=== PATIENT | male | born 1970 | race Caucasian/White ===

== ENCOUNTER → 2022-07-06 07:36 | Outpatient (CLI) | payer BC, SELFPAY ==
[2022-07-06 07:48] LABS: Microscopic, Urine URINE MICROSCOPIC (MICROSCOPIC)
[2022-07-06 08:04] LABS: Appearance,Urine SL CLOUDY (Clear); Bilirubin,Urine Negative (Negative); Blood, Urine TRACE-I (Negative); Color,Urine YELLOW (Yellow); Glucose,Urine (UA) Negative (Negative); Ketones,Urine Negative (Negative); Leukocyte Esterase,Urine TRACE (Negative); Nitrate,Urine Negative (Negative); PH,Urine 6.5 (5.0-8.5); Protein,Urine Negative (Negative); Specific Gravity, Urine 1.015 (1.005-1.030); Urobilinogen,Urine 0.2 EU/dl (0.2)
[2022-07-06 08:09] LABS: Basophils # 0.1 K/mm3 (0-0.2); Basophils % 1.6 % (0.1-2.0); Eosinophils # 0.1 K/mm3 (0.0-0.4); Eosinophils % 1.6 % (0.1-12.0); Hemoglobin 17.9 g/dL (14.1-18.0); Lymphocytes # 1.8 K/mm3 (0.7-4.5); Lymphocytes % 22.9 % (10-50); Mean Corpuscular HGB Conc 33.1 g/dL (31.8-35.4); Mean Corpuscular Hemoglobin 30.7 pg (27.0-31.2); Mean Corpuscular Volume 92.9 fl (80-94); Mean Platelet Volume 8.8 fl (7.4-10.4); Monocytes # 0.5 K/mm3 (0.1-1.0); Monocytes % 6.3 % (1.7-9.3); Neutrophils # 5.4 K/mm3 (1.8-7.8); Neutrophils % 67.6 % (37.0-80.0); Platelet Count 287 K/mm3 (142-424); Red Blood Count 5.82 M/mm3 (4.60-6.20); Red Cell Distribution Width 13.4 % (11.5-17.5)
[2022-07-06 08:20] LABS: Squamous Epithelial Cell,Urine Occasional #/hpf (0-5); WBC,Urine Occasional #/hpf (0-3)
[2022-07-06 08:47] LABS: Alanine Aminotransferase 40 U/L (12-78); Albumin Level 4.8 g/dl (3.5-5.0); Albumin/Globulin Ratio 1.5 (1.1-1.8); Alkaline Phosphatase 95 U/L (38-126); Anion Gap 16.4 mEq/L (5-15); Aspartate Amino Transferase 31 U/L (17-59); Bilirubin,Total 0.9 mg/dl (0.2-1.3); Blood Urea Nitrogen 12 mg/dl (9-20); Calcium 10.2 mg/dl (8.4-10.2); Carbon Dioxide 30 mmol/L (22.0-30.0); Chloride 97 mmol/L (98-107); Chol/HDL Ratio 5.6 (1-3.5); Cholesterol 203 mg/dl (140-200); Estimated Glomerular Filt Rate 71 ml/min (>60); GFR (African American) 86 ML/MIN (>60); Globulin 3.1 g/dL (1.3-3.2); Glucose 87 mg/dl (74-100); HDL Cholesterol 36 mg/dl (40-60); Potassium 4.4 mmoL/L (3.5-5.1); Sodium 139 mmol/L (136-145); Total Protein,Serum 7.9 g/dl (6.3-8.2); Triglycerides 189 mg/dl (30-150); VLDL Cholesterol 38 mg/dL (0-40)
[2022-07-06 08:58] LABS: Direct LDL Cholesterol 119.35 mg/dL (100-129)
[2022-07-12 04:35] LABS: Testosterone, Total, LC/MS 990 ng/dL (.)
== END ==
PROVIDERS: PCP Internal Medicine; Visit Provider Nurse Practitioner Family
DX: I10 Essential (primary) hypertension (principal); R53.83 Other fatigue; E29.1 Testicular hypofunction; Z13.220 Encounter for screening for lipoid disorders; Z12.5 Encounter for screening for malignant neoplasm of prostate
CPT/HCPCS: 36415; 80053; 80061; 81001; 84403; 85025; G0103

== ENCOUNTER → 2022-12-28 07:35 | Outpatient (CLI) | payer BC, SELFPAY ==
[2022-12-28 07:43] LABS: Microscopic, Urine URINE MICROSCOPIC (MICROSCOPIC)
[2022-12-28 08:16] LABS: Basophils # 0.1 K/mm3 (0-0.2); Basophils % 0.9 % (0.1-2.0); Eosinophils # 0.2 K/mm3 (0.0-0.4); Eosinophils % 2.1 % (0.1-12.0); Hematocrit 51.3 % (42.0-52.0); Hemoglobin 17.5 g/dL (14.1-18.0); Lymphocytes # 2.3 K/mm3 (0.7-4.5); Lymphocytes % 32.2 % (10-50); Mean Corpuscular HGB Conc 34.2 g/dL (31.8-35.4); Mean Corpuscular Hemoglobin 30.7 pg (27.0-31.2); Mean Platelet Volume 8.9 fl (7.4-10.4); Monocytes # 0.4 K/mm3 (0.1-1.0); Monocytes % 6.2 % (1.7-9.3); Neutrophils # 4.2 K/mm3 (1.8-7.8); Neutrophils % 58.6 % (37.0-80.0); Platelet Count 295 K/mm3 (142-424); Red Cell Distribution Width 13.1 % (11.5-17.5); White Blood Count 7.1 K/mm3 (4.8-10.8)
[2022-12-28 08:25] LABS: Appearance,Urine CLEAR (Clear); Bilirubin,Urine Negative (Negative); Blood, Urine Negative (Negative); Color,Urine YELLOW (Yellow); Glucose,Urine (UA) Negative (Negative); Ketones,Urine Negative (Negative); Leukocyte Esterase,Urine Negative (Negative); Nitrate,Urine Negative (Negative); Protein,Urine Negative (Negative); Urobilinogen,Urine 0.2 EU/dl (0.2)
[2022-12-28 08:36] LABS: Chloride 95 mmol/L (98-107)
[2022-12-28 08:37] LABS: Potassium 4.4 mmoL/L (3.5-5.1); Sodium 137 mmol/L (136-145)
[2022-12-28 08:39] LABS: Blood Urea Nitrogen 14 mg/dl (9-20); Estimated Glomerular Filt Rate 64 ml/min (>60); GFR (African American) 77 ML/MIN (>60)
[2022-12-28 08:40] LABS: Anion Gap 19.4 mEq/L (5-15); Calcium 9.7 mg/dl (8.4-10.2); Carbon Dioxide 27 mmol/L (22.0-30.0); Glucose 89 mg/dl (74-100)
[2022-12-28 08:47] LABS: WBC,Urine Occasional #/hpf (0-3)
[2022-12-28 08:48] LABS: Bacteria,Urine Trace /lpf; RBC,Urine Occasional #/hpf (0-3); Squamous Epithelial Cell,Urine Occasional #/hpf (0-5)
[2023-01-06 22:24] LABS: Testosterone, Total, LC/MS 323 ng/dL (.)
== END ==
PROVIDERS: PCP Internal Medicine; Visit Provider Nurse Practitioner Family
DX: R79.89 Other specified abnormal findings of blood chemistry (principal); E29.1 Testicular hypofunction
CPT/HCPCS: 36415; 80048; 81001; 84403; 85025

== ENCOUNTER → 2023-06-28 07:38 | Outpatient (CLI) | payer BC, SELFPAY ==
[2023-06-28 08:00] LABS: Basophils # 0.1 K/mm3 (0-0.2); Basophils % 1.1 % (0.1-2.0); Eosinophils # 0.1 K/mm3 (0.0-0.4); Eosinophils % 2.1 % (0.1-12.0); Hemoglobin 17.7 g/dL (14.1-18.0); Lymphocytes # 1.9 K/mm3 (0.7-4.5); Lymphocytes % 30.7 % (10-50); Mean Corpuscular HGB Conc 34.8 g/dL (31.8-35.4); Mean Corpuscular Hemoglobin 32.1 pg (27.0-31.2); Mean Corpuscular Volume 92.4 fl (80-94); Mean Platelet Volume 8.7 fl (7.4-10.4); Monocytes # 0.4 K/mm3 (0.1-1.0); Monocytes % 6.7 % (1.7-9.3); Neutrophils # 3.7 K/mm3 (1.8-7.8); Neutrophils % 59.4 % (37.0-80.0); Platelet Count 244 K/mm3 (142-424); Red Blood Count 5.52 M/mm3 (4.60-6.20); Red Cell Distribution Width 13.1 % (11.5-17.5); White Blood Count 6.2 K/mm3 (4.8-10.8)
[2023-06-28 08:52] LABS: Alanine Aminotransferase 77 U/L (12-78); Aspartate Amino Transferase 48 U/L (17-59); Chol/HDL Ratio 5.8 (1-3.5); Cholesterol 219 mg/dl (140-200); HDL Cholesterol 38 mg/dl (40-60); Triglycerides 219 mg/dl (30-150); VLDL Cholesterol 44 mg/dL (0-40)
[2023-06-28 09:03] LABS: Direct LDL Cholesterol 127.15 mg/dL (100-129)
[2023-07-01 08:30] LABS: Anion Gap 15.7 mEq/L (5-15); Blood Urea Nitrogen 17 mg/dl (9-20); Calcium 9.9 mg/dl (8.4-10.2); Carbon Dioxide 27 mmol/L (22.0-30.0); Chloride 102 mmol/L (98-107); Estimated Glomerular Filt Rate 64 ml/min (>60); GFR (African American) 77 ML/MIN (>60); Glucose 100 mg/dl (74-100); Potassium 4.7 mmoL/L (3.5-5.1); Sodium 140 mmol/L (136-145)
[2023-07-08 22:28] LABS: Testosterone, Total, LC/MS 459 ng/dL (.)
== END ==
PROVIDERS: Urology; PCP Internal Medicine; Visit Provider Internal Medicine
DX: R79.89 Other specified abnormal findings of blood chemistry (principal); R53.83 Other fatigue; Z13.220 Encounter for screening for lipoid disorders; Z12.5 Encounter for screening for malignant neoplasm of prostate
CPT/HCPCS: 36415; 80048; 80061; 84403; 84450; 84460; 85025; G0103

== ENCOUNTER 2025-02-12 07:05 | Outpatient (CLI) | payer BC, SELFPAY ==
--- OUTSIDE RECORDS SUMMARY | 2025-02-12 07:09 | XMS_ITS | Encounter Summary ---
Author Organization [employer] [facility] Address [address] [place] [id number] Care Team Providers Care Manager Travel Name Role Phone River Fajardo DO Primary Care Provider [phone] Leigh Rosenthal MD Primary Care Provider [phone] Encounter Details Date Type Department Care Team (Late st Contact Info) Description 06/30/2022 Outside Orders [facility] Admitting [address] [place] [id number] River Fajardo, DO [address] [place] [address] Social History Tobacco Use Types Packs/Day Years Used Date Smoking Tobacco: Never Assessed Sex and Gender Information Value Date Recorded Sex Assigned at Not on file Legal Sex Male 5:43 PM CDT Gender Identity Not on file Sexual Orientation Not on file documented as of this encounter Plan of Treatment Not on file documented as of this encounter Visit Diagnoses Not on filedocumented in this encounter Care Teams Manager Travel Relationship Specialty Start Date End Date River Fajardo DO [address] [address] [address] [place] [address] PCP - General Family Medicine 06/30/22 07/02/24 Leihg Rosenthal MD [address] [facility] [address] [place] [address] PCP - General Pediatrics 07/03/24 documented as of this encounter
--- OUTSIDE RECORDS SUMMARY | 2025-02-12 07:09 | XMS_ITS | Encounter Summary ---
Author Organization [employer] [facility] [employer] Address [address] [place] [address] Care Team Providers Care Model Set Artist Name Role Phone River Fajardo DO Primary Care Provider [phone] Leigh Rosenthal MD Primary Care Provider [phone] Encounter Details Date Type Department Care Team (Late st Contact Info) Description 06/30/2022 Outside Orders [facility] Admitting [address] [place] [address] River Fajardo DO [address] [place] [address] Low testosterone (Primary Dx) Social History Tobacco Use Types Packs/Day Years Used Date Smoking Tobacco: Never Assessed Sex and Gender Information Value Date Recorded Sex Assigned at Not on file Legal Sex Male 5:43 PM CDT Gender Identity Not on file Sexual Orientation Not on file documented as of this encounter Plan of Treatment Scheduled Orders Name Type Priority Associated Diagnoses Orde r Schedule Basic Metabolic Panel Lab Routine Low testosterone Ordered: 06/30/2022 Lipid panel Lab Routine Low testosterone Ordered: 06/30/2022 ALT+AST Lab Routine Low testosterone Ordered: 06/30/2022 Testosterone, free + total Lab Routine Low testosterone Ordered: 06/30/2022 Comprehensive metabolic panel Lab Routine Low testosterone Ordered: 06/30/2022 PSA Total (Reflex To Free) Pathology and Cytology AP Routine Low testosterone Ordered: 06/30/2022 Urinalysis, Complete Lab Routine Low testosterone Ordered: 06/30/2022 documented as of this encounter Visit Diagnoses Diagnosis Low testosterone- Primary documented in this encounter Care Teams Model Set Artist Relationship Specialty Start Date End Date River Fajardo DO [address] [place] [address] PCP - General Family Medicine 06/30/22 07/02/24 Leigh Rosenthal MD [address] [place], [place] [id number] PCP - General Pediatrics 07/03/24 documented as of this encounter
--- OUTSIDE RECORDS SUMMARY | 2025-02-12 07:09 | XMS_ITS | Clinical Summary ---
Author Organization [employer] [facility] [employer] Address [address] [place] [address] Care Team Providers Care Database Consultant Name Role Phone Leigh Rosenthal MD Primary Care Provider Social History Tobacco Use Types Packs/Day Years Used Date Smoking Tobacco: Never Assessed Interpersonal Safety Answer Date Record ed Family or friends hurt you Not on file 09/15 Family or friends insult you Not on file Family or friends threaten you Not on file 0 09/15/2023 Family or friends scream or curse at you Not on file 09/15/2023 Housing Stability Answer Date Recorded Living situation today Not on file Living situation problems Not on file 2023 Food Insecurity Answer Date Recorded Food run out past 12 months Not on file 08/29 Food did not last past 12 months Not on file 09/15/2023 Employment Answer Date Recorded Help finding and keeping a job Not on file 0 09/15/2023 Family and Community Support Answer Darrell e Recorded Help with Day to Day Activities Not on file 09/15/2023 Feeling Lonely or Isolated Not on file 09/15 Educational Attainment Answer Date Ismael rded Speak language other than Polish at home Not on file 09/15/2023 Want help with school or training Not on file 09/15/2023 Depression Answer Date Recorded PHQ-2 Risk Not on file 09/15/2023 Disabilities Answer Date Recorded Difficulty concentrating Not on file 024 Difficulty doing errands alone Not on file 0 09/15/2023 Substance Use Answer Date Recorded Used prescription meds for non-medical reasons N ot on file 09/15/2023 Used illegal drugs past 12 months Not on file 09/15/2023 Sex and Gender Information Value Date Recorded Sex Assigned at Not on file Legal Sex Male 5:43 PM CDT Gender Identity Not on file Sexual Orientation Not on file Plan of Treatment Health Maintenance Due Date Last Done Comments CT Colonography 1971 Colonoscopy 1971 Colorectal Cancer Screening 1971 FOBT/FIT 1971 Fit-DNA (Cologuard) 1971 Sigmoidoscopy 1971 Depression Screening (12+) 1983 Tobacco Cessation Counseling and Screening (12+) 1983 HIV Screening 10/29/1986 Hepatitis C Screening 10/29/1989 Lipid Panel 10/29/2006 Pneumococcal 50+ years (1 of 1 - PCV) 10/29/2021 Shingles Vaccine (Zoster) (1 of 2) 10/29/2021 COVID-19 VACCINE (1 - season) 04/29/202408/2020, 10/27/2020 Influenza Vaccine (Season Ended) 2025 DTAP/TDAP/TD VACCINES (2 - Td or Tdap) 09/11/2025 Insurance BLUE CROSS/BLUE SHIELD Care Teams Database Consultant Relationship Specialty Start Date End Date Leigh Rosenthal MD [address] [facility] [address] [place] [id number] PCP - General Pediatrics 07/03/24
--- OUTSIDE RECORDS SUMMARY | 2025-02-12 07:09 | XMS_ITS | Data Portability ---
Author Organization [facility] Address [address] [place] [address] Assessment No assessment recorded. Plan of Treatment Reminders Order Date Submit Date Provider Last Modified By Organization Details Last Modified Time Details Appointments FOLLOW UP 30 2024 04:30P Joyce curry MD Not available Not available Not available Lab lipid panel, serum or plasma 2024 025 [facility]), [address] [place], [address], 02/05/2025 15:08:27 CBC w/ auto diff 2024 025 [facility]), [address] [place] [address], [address], 02/05/2025 15:08:26 testost erone, free + total, serum 2024 025 [facility]), [address] [place] [address], [address], 02/05/2025 15:08:28 HbA1c (hemogl obin A1c), blood 2024 025 [facility], [address] [place] [address], [address], 02/05/2025 15:08:29 PSA, serum or plasma 2024 025 [facility], [address] [place] [address], [address], 02/05/2025 15:08:28 CMP, serum or plasma 2024 025 [facility]), [address] [place], [address], 02/05/2025 15:08:27 CMP, serum or plasma 2023 024 [facility]), [address] [place], [address], 06/27/2024 05:07:39 CBC w/ auto diff 2023 024 [facility]), [address] [place] [address], [address], 06/27/2024 05:07:38 BMP, serum or plasma 2023 024 [employer] [facility], [address], [place], [address], 12/13/2023 13:43:31 lipid panel, serum 2023 024 [facility], [address], [place], [address], 12/13/2023 13:43:31 urinaly sis, complet e 2023 024 [facility], [address], [place], [address], 12/13/2023 13:43:31 BMP, serum or plasma 2022 023 [employer], [address], [place], [address], 07/01/2023 09:24:18 lipid panel, serum 2022 023 [facility], [address], [place], [address], 07/01/2023 16:43:24 urinaly sis, complet e 2022 023 [email or web address], [address], [place], [address], 07/01/2023 16:43:24 BMP, serum or plasma [address] [facility], [address], [place], [address], 12/28/2022 10:42:16 urinaly sis, complet e 2022 023 [employer] [facility], [address], [place], [address], 12/28/2022 10:42:16 Referral gastroe nterolo gist referra l 2024 025 adilene Andrew MD, [address] [place] [address], [facility], [place], [address], 02/11/2025 14:59:40 Procedures None recorde d. Surgeries None recorde d. Imaging None recorde d. Medication Orders amlodip ine 10 mg tablet 2024 025 [facility], [address], [place], [address], 01/28/2025 16:12:11 valsart an 320 mg tablet 2024 025 [facility], [address], [place], [address], 01/28/2025 16:12:16 spirono lactone 25 mg tablet 2024 025 [facility], [address], [place], [address], 01/28/2025 16:12:12 venlafa xine ER 75 mg capsule ,extend ed release 24 hr 2024 025 [facility], [address], [place], [address], 01/28/2025 16:12:12 amlodip ine 10 mg tablet 2023 024 [facility] [id number], [address], [place], [address], 12/06/2023 15:33:05 spirono lactone 25 mg tablet 2023 024 [facility] [id number], [address], [place], [address], 12/06/2023 15:32:52 valsart an 320 mg tablet 2023 024 [facility] [id number], [address], [place], [address], 12/06/2023 15:32:55 venlafa xine ER 75 mg capsule ,extend ed release 24 hr 2023 024 [facility] [id number], [address], [place], [address], 12/06/2023 15:33:03 amlodip ine 10 mg tablet 2022 023 [facility] [id number], [address], [place], [address], 06/21/2023 18:01:23 spirono lactone 25 mg tablet 2022 023 [facility] [id number], [address], [place], [address], 06/21/2023 18:01:23 valsart an 320 mg tablet 2022 023 [facility] [id number], [address], [place], [address], 06/21/2023 18:01:28 venlafa xine ER 75 mg capsule ,extend ed release 24 hr 2022 023 [facility] [id number], [address], [place], [address], 06/21/2023 18:01:13 amlodip ine 10 mg tablet 2022 023 [facility] [id number], [address], [place], [address], 12/22/2022 16:18:37 spirono lactone 25 mg tablet 2022 023 [facility] [id number], [address], [place], [address], 12/22/2022 16:18:35 valsart an 320 mg tablet 2022 023 [facility] [id number], [address], [place], [address], 12/22/2022 16:18:26 venlafa xine ER 75 mg capsule ,extend ed release 24 hr 2022 023 [facility] [id number], [address], [place], [address], 12/22/2022 16:18:31 Patient TargetsNo targets recorded. Patient Instructions Encounter Date Encounter Id Patient Instructions Last Modified By Organization Details Last Modified Time 12/22/2022 [id number] Needs colonoscopy in 2023. [email or web address] Not available 12/22/2022 16:18:29 06/21/2023 [id number] weight management education Not available 06/21/2023 17:59:59 Needs colonoscopy in 2025. Plans to get labs done with urology orders. Already had flu vaccine this year. [email or web address] Not available 06/21/2023 18:01:30 12/06/2023 [id number] weight management education [email or web address] Not available 12/06/2023 15:32:41 Needs colonoscopy in 2025. Already had flu vaccine this year. 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 Referral for Screening for malignant neoplasm of colon Referring Physician: Leigh Rosenthal, Pediatric Internal Medicine, [phone] Encounter Date: 01/28/2025 Results Created Date Observation Date Name Description Value Unit Range Abnormal Flag Note LastModifiedBy Organization Detail LastModifiedTime 01/13/20 24 01/14/2024 LIPID PANEL WITH REFLE X TO DIREC T LDL cholesterol, total 196 mg/dL <200 normal Not Available [facility] [address] [place], [address], 01/14/2024 07:03:26 01/13/20 24 01/14/2024 LIPID PANEL WITH REFLE X TO DIREC T LDL HDL cholesterol 44 mg/dL > or = 40 normal Not Available [facility] [address] [place], [address], 01/14/2024 07:03:26 01/13/20 24 01/14/2024 LIPID PANEL WITH REFLE X TO DIREC T LDL triglyceride s 211 mg/dL <150 high If a non-f astin g speci men was colle cted, consi abbie repea t trigl yceri de testi ng on a fasti ng speci men if clini claudia indic ated. [place] aleman et al. J. of Clin. Lipid ol. 2015; 9:129 -169. Not Available [facility] [address], [place], [address], 01/14/2024 07:03:26 01/13/20 24 01/14/2024 LIPID PANEL WITH REFLE X TO DIREC T LDL LDL-choleste rol 119 mg/dL _(milena c) high Refer ence range : <100 Jorgito able range <100 mg/dL for prima ry preve ntion ; <70 mg/dL for patie nts with CHD or diabe tic patie nts with > or = 2 CHD risk facto rs. LDL-C is now calcu lated using the Marianne n-Hop kins calcu latio n, which is a valid ated novel miguelo d provi tk skinny r accur acy than the Fried brooke equat ion in the estim ation of LDL-C . Marianne prasad SS et al. DAI. 2013; 310(1 9): 2061- 2068 (http ://ed ucati on.Qu Felix NetEffect. com/f aq/FA Q164) Not Available [facility] [address], [place], [address], 01/14/2024 07:03:26 01/13/20 24 01/14/2024 LIPID PANEL WITH REFLE X TO DIREC T LDL chol/HDLC ratio 4.5 (calc ) <5.0 normal Not Available [facility] [address], [place], [address], 01/14/2024 07:03:26 01/13/20 24 01/14/2024 LIPID PANEL WITH REFLE X TO DIREC T LDL non HDL cholesterol 152 mg/dL _(milena c) <130 high For patie nts with diabe barrington plus 1 major ASCVD risk facto r, treat ing to a non-H DL-C goal of <100 mg/dL (LDL- C of <70 mg/dL ) is consi dered a thera peuti c optio n. Not Available [facility] [address], [place], [address], 01/14/2024 07:03:26 01/13/20 24 01/14/2024 BASIC METAB OLIC PANEL glucose 85 mg/dL 65-99 normal Fasti ng refer ence inter kaylan Not Available [facility] [address] [place], [address], 01/14/2024 07:03:27 01/13/20 24 01/14/2024 BASIC METAB OLIC PANEL urea nitrogen (BUN) 21 mg/dL 7-25 normal Not Available [facility] [address] [place], [address], 01/14/2024 07:03:27 01/13/20 24 01/14/2024 BASIC METAB OLIC PANEL creatinine 1.43 mg/dL 0.70-1 .30 high Not Available [facility] [address] [place], [address], 01/14/2024 07:03:27 01/13/20 24 01/14/2024 BASIC METAB OLIC PANEL eGFR 59 mL/mi n/1.7 3m2 > or = 60 low Not Available [facility] [address] [place], [address], 01/14/2024 07:03:27 01/13/20 24 01/14/2024 BASIC METAB OLIC PANEL BUN/creatini ne ratio 15 (calc ) 6-22 normal Not Available [facility] [address] [place], [address], 01/14/2024 07:03:27 01/13/20 24 01/14/2024 BASIC METAB OLIC PANEL sodium 137 mmol/ L 135-14 6 normal Not Available [facility] [address] [place], [address], 01/14/2024 07:03:27 01/13/20 24 01/14/2024 BASIC METAB OLIC PANEL potassium 4.5 mmol/ L 3.5-5. 3 normal Not Available [facility] [address] [place], [address], 01/14/2024 07:03:27 01/13/20 24 01/14/2024 BASIC METAB OLIC PANEL chloride 102 mmol/ L 98-110 normal Not Available [facility] [address] [place], [address], 01/14/2024 07:03:27 01/13/20 24 01/14/2024 BASIC METAB OLIC PANEL carbon dioxide 25 mmol/ L 20-32 normal Not Available [facility] [address] [place], [address], 01/14/2024 07:03:27 01/13/20 24 01/14/2024 BASIC METAB OLIC PANEL calcium 10.1 mg/dL 8.6-10 .3 normal Not Available [facility] [address] [place], [address], 01/14/2024 07:03:27 06/26/20 24 06/27/2024 CBC WITH DIFFE RENTI AL/PL ATELE T WBC 6.8 x10e3 /uL 3.4-10 .8 normal Not Available [facility]) [address] [place], [address], 06/27/2024 05:07:38 06/26/20 24 06/27/2024 CBC WITH DIFFE RENTI AL/PL ATELE T RBC 5.59 x10e6 /uL 4.14-5 .80 normal Not Available [facility] ([facility]) [address] [place], [address], 06/27/2024 05:07:38 06/26/20 24 06/27/2024 CBC WITH DIFFE RENTI AL/PL ATELE T hemoglobin 16.8 g/dL 13.0-1 7.7 normal Not Available [facility] ([facility]) [address] [facility], [place], [address], 06/27/2024 05:07:38 06/26/2006/27/2024 CBC WITH DIFFE RENTI AL/PL ATELE T hematocrit 51.5 % 37.5-5 1.0 above high normal Not Available [facility] ([facility]) [address] [facility], [place], [address], 06/27/2024 05:07:38 06/26/2006/27/2024 CBC WITH DIFFE RENTI AL/PL ATELE T MCV 92 fL 79-97 normal Not Available [facility] ([facility]) [address] [facility], [place], [address], 06/27/2024 05:07:38 06/26/20 24 06/27/2024 CBC WITH DIFFE RENTI AL/PL ATELE T MCH 30.1 pg 26.6-3 3.0 normal Not Available [facility] ([facility]) [address] [facility], [place], [address], 06/27/2024 05:07:38 06/26/2006/27/2024 CBC WITH DIFFE RENTI AL/PL ATELE T MCHC 32.6 g/dL 31.5-3 5.7 normal Not Available [facility] ([facility]) [address] [facility], [place], [address], 06/27/2024 05:07:38 06/26/20 24 06/27/2024 CBC WITH DIFFE RENTI AL/PL ATELE T RDW 12.2 % 11.6-1 5.4 Not Available [facility] ([facility]) [address] [facility], [place], [address], 06/27/2024 05:07:38 06/26/20 24 06/27/2024 CBC WITH DIFFE RENTI AL/PL ATELE T platelets 282 x10e3 /uL 150-45 0 normal Not Available [facility]) [address] [facility], [place], [address], 06/27/2024 05:07:38 06/26/20 24 06/27/2024 CBC WITH DIFFE RENTI AL/PL ATELE T neutrophils 51 % not estab. normal Not Available [facility] ([facility]) [address] [facility], [place], [address], 06/27/2024 05:07:38 06/26/20 24 06/27/2024 CBC WITH DIFFE RENTI AL/PL ATELE T lymphs 35 % not estab. normal Not Available [facility] ([facility]) [address] [facility], [place], [address], 06/27/2024 05:07:38 06/26/20 24 06/27/2024 CBC WITH DIFFE RENTI AL/PL ATELE T monocytes 11 % not estab. normal Not Available [facility] ([facility]) [address] [facility], [place], [address], 06/27/2024 05:07:38 06/26/2006/27/2024 CBC WITH DIFFE RENTI AL/PL ATELE T eos 2 % not estab. normal Not Available [facility]) [address] [facility], [place], [address], 06/27/2024 05:07:38 06/26/20 24 06/27/2024 CBC WITH DIFFE RENTI AL/PL ATELE T basos 1 % not estab. normal Not Available [facility]) [address] [facility], [place], [address], 06/27/2024 05:07:38 06/26/2006/27/2024 CBC WITH DIFFE RENTI AL/PL ATELE T immature cells [employer] Not Available [facility] ([facility]) [address] [facility], [place], [address], 06/27/2024 05:07:38 06/26/20 24 06/27/2024 CBC WITH DIFFE RENTI AL/PL ATELE T neutrophils (absolute) 3.5 x10e3 /uL 1.4-7. 0 normal Not Available [facility]) [address] [place], [address], 06/27/2024 05:07:38 06/26/20 24 06/27/2024 CBC WITH DIFFE RENTI AL/PL ATELE T lymphs (absolute) 2.4 x10e3 /uL 0.7-3. 1 normal Not Available [facility] ([facility]) [address] [place], [address], 06/27/2024 05:07:38 06/26/20 24 06/27/2024 CBC WITH DIFFE RENTI AL/PL ATELE T monocytes(ab solute) 0.7 x10e3 /uL 0.1-0. 9 normal Not Available [facility] ([facility]) [address] [place], [address], 06/27/2024 05:07:38 06/26/20 24 06/27/2024 CBC WITH DIFFE RENTI AL/PL ATELE T eos (absolute) 0.1 x10e3 /uL 0.0-0. 4 normal Not Available [facility] ([facility]) [address] [place], [address], 06/27/2024 05:07:38 06/26/20 24 06/27/2024 CBC WITH DIFFE RENTI AL/PL ATELE T baso (absolute) 0.1 x10e3 /uL 0.0-0. 2 normal Not Available [facility] ([facility]) [address] [place], [address], 06/27/2024 05:07:38 06/26/20 24 06/27/2024 CBC WITH DIFFE RENTI AL/PL ATELE T immature granulocytes 0 % not estab. Not Available [facility] ([facility]) [address] [place], [address], 06/27/2024 05:07:38 06/26/20 24 06/27/2024 CBC WITH DIFFE RENTI AL/PL ATELE T immature grans (abs) 0.0 x10e3 /uL 0.0-0. 1 Not Available [facility] ([facility]) [address] [facility], [place], [address], 06/27/2024 05:07:38 06/26/20 24 06/27/2024 CBC WITH DIFFE RENTI AL/PL ATELE T NRBC [employer] Not Available [facility] ([facility]) [address] [facility], [place], [address], 06/27/2024 05:07:38 06/26/2006/27/2024 CBC WITH DIFFE RENTI AL/PL ATELE T hematology comments: [employer] Not Available [facility] ([facility]) [address] [facility], [place], [address], 06/27/2024 05:07:38 06/26/2006/27/2024 COMP. METAB OLIC PANEL (14) glucose 89 mg/dL 70-99 normal Not Available [facility] ([facility]) [address] [facility], [place], [address], 06/27/2024 05:07:39 06/26/20 24 06/27/2024 COMP. METAB OLIC PANEL (14) BUN 14 mg/dL 6-24 normal Not Available [facility] ([facility]) [address] [facility], [place], [address], 06/27/2024 05:07:39 06/26/20 24 06/27/2024 COMP. METAB OLIC PANEL (14) creatinine 1.33 mg/dL 0.76-1 .27 above high normal Not Available [facility] ([facility]) [address] [facility], [place], [address], 06/27/2024 05:07:39 06/26/20 24 06/27/2024 COMP. METAB OLIC PANEL (14) eGFR 64 mL/mi n/1.7 3 >59 normal Not Available [facility] ([facility]) [address] [facility], [place], [address], 06/27/2024 05:07:39 06/26/20 24 06/27/2024 COMP. METAB OLIC PANEL (14) BUN/creatini ne ratio 11 9-20 normal Not Available [facility] ([facility]) [address] [facility], [place], [address], 06/27/2024 05:07:39 06/26/20 24 06/27/2024 COMP. METAB OLIC PANEL (14) sodium 139 mmol/ L 134-14 4 normal Not Available [facility] ([facility]) [address] [facility], [place], [address], 06/27/2024 05:07:39 06/26/20 24 06/27/2024 COMP. METAB OLIC PANEL (14) potassium 4.1 mmol/ L 3.5-5. 2 normal Not Available [facility] ([facility]) [address] [place], [address], 06/27/2024 05:07:39 06/26/20 24 06/27/2024 COMP. METAB OLIC PANEL (14) chloride 101 mmol/ L 96-106 normal Not Available [facility] ([facility]) [address] [place], [address], 06/27/2024 05:07:39 06/26/20 24 06/27/2024 COMP. METAB OLIC PANEL (14) carbon dioxide, total 24 mmol/ L 20-29 normal Not Available [facility] ([facility]) [address] [place], [address], 06/27/2024 05:07:39 06/26/20 24 06/27/2024 COMP. METAB OLIC PANEL (14) calcium 9.7 mg/dL 8.7-10 .2 normal Not Available [facility] ([facility]) [address] [place], [address], 06/27/2024 05:07:39 06/26/20 24 06/27/2024 COMP. METAB OLIC PANEL (14) protein, total 7.7 g/dL 6.0-8. 5 normal Not Available [facility] ([facility]) [address] [place], [address], 06/27/2024 05:07:39 06/26/20 24 06/27/2024 COMP. METAB OLIC PANEL (14) albumin 4.6 g/dL 3.8-4. 9 normal Not Available [facility] ([facility]) [address], [place], [address], 06/27/2024 05:07:39 06/26/20 24 06/27/2024 COMP. METAB OLIC PANEL (14) globulin, total 3.1 g/dL 1.5-4. 5 Not Available [facility]) [address] [place], [address], 06/27/2024 05:07:39 06/26/20 24 06/27/2024 COMP. METAB OLIC PANEL (14) bilirubin, total 0.5 mg/dL 0.0-1. 2 normal Not Available [facility] ([facility]) [address] [facility] [place], [address], 06/27/2024 05:07:39 06/26/20 24 06/27/2024 COMP. METAB OLIC PANEL (14) alkaline phosphatase 92 IU/L 44-121 normal Not Available [facility] [address] [facility] [place], [address], 06/27/2024 05:07:39 06/26/20 24 06/27/2024 COMP. METAB OLIC PANEL (14) AST (SGOT) 21 IU/L 0-40 normal Not Available [facility] ([facility]) [address] [place], [address], 06/27/2024 05:07:39 06/26/20 24 06/27/2024 COMP. METAB OLIC PANEL (14) ALT (SGPT) 41 IU/L 0-44 normal Not Available [facility] ([facility]) [address] [place], [address], 06/27/2024 05:07:39 02/03/20 25 02/03/2025 CBC WITH DIFFE RENTI AL/PL ATELE T WBC 7.5 x10e3 /uL 3.4-10 .8 normal Not Available [facility]) [address] [facility], [place], [address], 02/05/2025 15:08:26 02/03/20 25 02/03/2025 CBC WITH DIFFE RENTI AL/PL ATELE T RBC 6.14 x10e6 /uL 4.14-5 .80 above high normal Not Available [facility] ([facility]) [address] [place], [address], 02/05/2025 15:08:26 02/03/20 25 02/03/2025 CBC WITH DIFFE RENTI AL/PL ATELE T hemoglobin 17.6 g/dL 13.0-1 7.7 normal Not Available [facility] ([facility]) [address] [place], [address], 02/05/2025 15:08:26 02/03/20 25 02/03/2025 CBC WITH DIFFE RENTI AL/PL ATELE T hematocrit 55.8 % 37.5-5 1.0 above high normal Not Available [facility] ([facility]) [address] [place], [address], 02/05/2025 15:08:26 02/03/20 25 02/03/2025 CBC WITH DIFFE RENTI AL/PL ATELE T MCV 91 fL 79-97 normal Not Available [facility] ([facility]) [address] [place], [address], 02/05/2025 15:08:26 02/03/20 25 02/03/2025 CBC WITH DIFFE RENTI AL/PL ATELE T MCH 28.7 pg 26.6-3 3.0 normal Not Available [facility] ([facility]) [address] [place], [address], 02/05/2025 15:08:26 02/03/20 25 02/03/2025 CBC WITH DIFFE RENTI AL/PL ATELE T MCHC 31.5 g/dL 31.5-3 5.7 normal Not Available [facility] ([facility]) [address] [place], [address], 02/05/2025 15:08:26 02/03/20 25 02/03/2025 CBC WITH DIFFE RENTI AL/PL ATELE T RDW 12.2 % 11.6-1 5.4 Not Available [facility] ([facility]) [address] [place], [address], 02/05/2025 15:08:26 02/03/20 25 02/03/2025 CBC WITH DIFFE RENTI AL/PL ATELE T platelets 276 x10e3 /uL 150-45 0 normal Not Available [facility] ([facility]) [address] [place], [address], 02/05/2025 15:08:26 02/03/20 25 02/03/2025 CBC WITH DIFFE RENTI AL/PL ATELE T neutrophils 60 % not estab. normal Not Available [facility] ([facility]) [address] [place], [address], 02/05/2025 15:08:26 02/03/20 25 02/03/2025 CBC WITH DIFFE RENTI AL/PL ATELE T lymphs 29 % not estab. normal Not Available [facility] ([facility]) [address] [facility], [place], [address], 02/05/2025 15:08:26 02/03/20 25 02/03/2025 CBC WITH DIFFE RENTI AL/PL ATELE T monocytes 8 % not estab. normal Not Available [facility] ([facility]) [address] [facility], [place], [address], 02/05/2025 15:08:26 02/03/20 25 02/03/2025 CBC WITH DIFFE RENTI AL/PL ATELE T eos 2 % not estab. normal Not Available [facility] ([facility]) [address] [facility], [place], [address], 02/05/2025 15:08:26 02/03/20 25 02/03/2025 CBC WITH DIFFE RENTI AL/PL ATELE T basos 1 % not estab. normal Not Available [facility] ([facility]) [address] [facility], [place], [address], 02/05/2025 15:08:26 02/03/20 25 02/03/2025 CBC WITH DIFFE RENTI AL/PL ATELE T immature cells [employer]GER [employer] Not Available [facility] ([facility]) [address] [place], [address], 02/05/2025 15:08:26 02/03/20 25 02/03/2025 CBC WITH DIFFE RENTI AL/PL ATELE T neutrophils (absolute) 4.4 x10e3 /uL 1.4-7. 0 normal Not Available [facility] ([facility]) [address] [place], [address], 02/05/2025 15:08:26 02/03/20 25 02/03/2025 CBC WITH DIFFE RENTI AL/PL ATELE T lymphs (absolute) 2.2 x10e3 /uL 0.7-3. 1 normal Not Available [facility] ([facility]) [address] [facility], [place], [address], 02/05/2025 15:08:26 02/03/20 25 02/03/2025 CBC WITH DIFFE RENTI AL/PL ATELE T monocytes(ab solute) 0.6 x10e3 /uL 0.1-0. 9 normal Not Available [facility] ([facility]) [address] [facility], [place], [address], 02/05/2025 15:08:26 02/03/20 25 02/03/2025 CBC WITH DIFFE RENTI AL/PL ATELE T eos (absolute) 0.2 x10e3 /uL 0.0-0. 4 normal Not Available [facility] ([facility]) [address] [facility], [place], [address], 02/05/2025 15:08:26 02/03/20 25 02/03/2025 CBC WITH DIFFE RENTI AL/PL ATELE T baso (absolute) 0.1 x10e3 /uL 0.0-0. 2 normal Not Available [facility] ([facility]) [address] [place], [address], 02/05/2025 15:08:26 02/03/20 25 02/03/2025 CBC WITH DIFFE RENTI AL/PL ATELE T immature granulocytes 0 % not estab. Not Available [facility] ([facility]) [address] [facility], [place], [address], 02/05/2025 15:08:26 02/03/20 25 02/03/2025 CBC WITH DIFFE RENTI AL/PL ATELE T immature grans (abs) 0.0 x10e3 /uL 0.0-0. 1 Not Available [facility] ([facility]) [address] [place], [address], 02/05/2025 15:08:26 02/03/20 25 02/03/2025 CBC WITH DIFFE RENTI AL/PL ATELE T NRBC MANAGER HOUSE Not Available [facility] ([facility]) [address] [facility], [place], [address], 02/05/2025 15:08:26 02/03/20 25 02/03/2025 CBC WITH DIFFE RENTI AL/PL ATELE T hematology comments: MANAGER HOUSE Not Available [facility] ([facility]) [address] [facility], [place], [address], 02/05/2025 15:08:26 02/03/20 25 02/03/2025 COMP. METAB OLIC PANEL (14) glucose 80 mg/dL 70-99 normal Not Available [facility] ([facility]) [address] [facility], [place], [address], 02/05/2025 15:08:27 02/03/20 25 02/03/2025 COMP. METAB OLIC PANEL (14) BUN 12 mg/dL 6-24 normal Not Available [facility] ([facility]) [address] [facility], [place], [address], 02/05/2025 15:08:27 02/03/20 25 02/03/2025 COMP. METAB OLIC PANEL (14) creatinine 1.36 mg/dL 0.76-1 .27 above high normal Not Available [facility] ([facility]) [address] [facility], [place], [address], 02/05/2025 15:08:27 02/03/20 25 02/03/2025 COMP. METAB OLIC PANEL (14) eGFR 62 mL/mi n/1.7 3 >59 normal Not Available [facility] ([facility]) [address] [facility] [place], [address], 02/05/2025 15:08:27 02/03/20 25 02/03/2025 COMP. METAB OLIC PANEL (14) BUN/creatini ne ratio 9 9-20 normal Not Available [facility] ([facility]) [address] [facility] [place], [address], 02/05/2025 15:08:27 02/03/20 25 02/03/2025 COMP. METAB OLIC PANEL (14) sodium 139 mmol/ L 134-14 4 normal Not Available [facility] ([facility]) [address] [facility] [place], [address], 02/05/2025 15:08:27 02/03/20 25 02/03/2025 COMP. METAB OLIC PANEL (14) potassium 4.7 mmol/ L 3.5-5. 2 normal Not Available [facility] ([facility]) [address] [facility] [place], [address], 02/05/2025 15:08:27 02/03/20 25 02/03/2025 COMP. METAB OLIC PANEL (14) chloride 101 mmol/ L 96-106 normal Not Available [facility] ([facility]) [address] [facility] [place], [address], 02/05/2025 15:08:27 02/03/20 25 02/03/2025 COMP. METAB OLIC PANEL (14) carbon dioxide, total 21 mmol/ L 20-29 normal Not Available [facility] ([facility]) [address] [facility] [place], [address], 02/05/2025 15:08:27 02/03/20 25 02/03/2025 COMP. METAB OLIC PANEL (14) calcium 9.8 mg/dL 8.7-10 .2 normal Not Available [facility] ([facility]) [address] [facility] [place], [address], 02/05/2025 15:08:27 02/03/20 25 02/03/2025 COMP. METAB OLIC PANEL (14) protein, total 7.7 g/dL 6.0-8. 5 normal Not Available [facility] ([facility]) [address] [facility] [place], [address], 02/05/2025 15:08:27 02/03/20 25 02/03/2025 COMP. METAB OLIC PANEL (14) albumin 4.6 g/dL 3.8-4. 9 normal Not Available [facility] ([facility]) [address] [facility] [place], [address], 02/05/2025 15:08:27 02/03/20 25 02/03/2025 COMP. METAB OLIC PANEL (14) globulin, total 3.1 g/dL 1.5-4. 5 Not Available [facility] ([facility]) [address] [facility] [place], [address], 02/05/2025 15:08:27 02/03/20 25 02/03/2025 COMP. METAB OLIC PANEL (14) bilirubin, total 0.4 mg/dL 0.0-1. 2 normal Not Available [facility] ([facility]) [address] [facility] [place], [address], 02/05/2025 15:08:27 02/03/20 25 02/03/2025 COMP. METAB OLIC PANEL (14) alkaline phosphatase 104 IU/L 44-121 normal Not Available [facility]) [address] [place], [address], 02/05/2025 15:08:27 02/03/20 25 02/03/2025 COMP. METAB OLIC PANEL (14) AST (SGOT) 28 IU/L 0-40 normal Not Available [facility] ([facility]) [address] [place], [address], 02/05/2025 15:08:27 02/03/20 25 02/03/2025 COMP. METAB OLIC PANEL (14) ALT (SGPT) 49 IU/L 0-44 above high normal Not Available [facility] ([facility]) [address] [place], [address], 02/05/2025 15:08:27 02/03/20 25 02/03/2025 LIPID PANEL WITH LDL/H DL RATIO cholesterol, total 184 mg/dL 100-19 9 normal Not Available [facility] ([facility]) [address] [place], [address], 02/05/2025 15:08:27 02/03/20 25 02/03/2025 LIPID PANEL WITH LDL/H DL RATIO triglyceride s 175 mg/dL 0-149 above high normal Not Available [facility] ([facility]) [address] [place], [address], 02/05/2025 15:08:27 02/03/20 25 02/03/2025 LIPID PANEL WITH LDL/H DL RATIO HDL cholesterol 38 mg/dL >39 below low normal Not Available [facility] ([facility]) [address] [facility], [place], [address], 02/05/2025 15:08:27 02/03/20 25 02/03/2025 LIPID PANEL WITH LDL/H DL RATIO VLDL cholesterol milena 31 mg/dL 5-40 Not Available [facility] ([facility]) [address] [place], [address], 02/05/2025 15:08:27 02/03/20 25 02/03/2025 LIPID PANEL WITH LDL/H DL RATIO LDL chol calc ([facility]) 115 mg/dL 0-99 above high normal Not Available [facility] ([facility]) [address] [place], [address], 02/05/2025 15:08:27 02/03/20 25 02/03/2025 LIPID PANEL WITH LDL/H DL RATIO LDL calc 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 6 LDL/H DL Ratio Men Women 1/2 Avg.R isk 1.0 1.5 Avg.R isk 3.6 3.2 2X Avg.R isk 6.2 5.0 3X Avg.R isk 8.0 6.1 Not Available [facility] ([facility]) [address] [facility], [place], [address], 02/05/2025 15:08:27 02/03/20 25 02/03/2025 TESTO STERO NE,FR EE AND TOTAL testosterone 730 NG/dL 264-91 6 normal Adult male refer ence inter kaylan is based on a popul ation of healt hy nonob feli males (BMI <30) betwe en 19 and 39 years old. Ruddy aleman, et.al . JCEM 2017, 102;1 161-1 173. PMID: 99430 103. Not Available [facility] ([facility]) [address] [facility], [place], [address], 02/05/2025 15:08:28 02/03/20 25 02/05/2025 TESTO STERO NE,FR EE AND TOTAL free testosterone (direct) 16.2 pg/mL 7.2-24 .0 Not Available [facility] ([facility]) [address] [place], [address], 02/05/2025 15:08:28 02/03/20 25 02/02/2025 PSA TOTAL (REFL EX TO FREE) reflex criteria Commen t The perce nt free PSA is perfo rmed on a refle x basis only when the total PSA is betwe en 4.0 and 10.0 ng/mL . Not Available [facility] ([facility]) [address] [place], [address], 02/05/2025 15:08:28 02/03/20 25 02/03/2025 PSA TOTAL (REFL EX TO FREE) prostate specific Ag 2.2 NG/mL 0.0-4. 0 normal Prem ECLIA metho dolog y. Accor ding to the Ameri can [employer]rolo gical Assoc iatio n, Serum PSA shoul d decre ase and remai n at undet ectab le level s after radic al prost atect james. The AUA defin es bioch emica l recur rence as an initi al PSA value 0.2 ng/mL or great er follo wed by a subse quent confi rmato ry PSA value 0.2 ng/mL or great er. Value s obtai gato with diffe rent assay metho ds or kits canno t be used inter garza eably . Resul ts canno t be inter prete d as absol lumbee evide nce of the prese nce or absen ce of [facility] disea se. Not Available [facility] ([facility]) [address] [facility], [place], [address], 02/05/2025 15:08:28 02/03/20 25 02/03/2025 HEMOG LOBIN A1C hemoglobin A1C 5.7 % 4.8-5. 6 above high normal Predi abete s: 5.7 - 6.4 Diabe barrington: >6.4 Glyce laurel contr ol for adult s with diabe barrington: <7.0 Not Available [facility] ([facility]) [address] [facility], [place], [address], 02/05/2025 15:08:29 Result Notes None recorded. Problems Name Problem SNOMED Code Status Onset Date Resolution Date Notes Provider Name and Address Organization Details Recorded Time Hyperten sive disorder 72570220 Active 2023 Problem Code: I10; Problem Code Type: ICD-10; Leigh Rosenthal MD [address] [place] [address], [phone] , [employer] 4 07:23:47 Hypogona dism 47080692 Active 2023 Leigh Rosenthal MD [address] [place] [address], [address] , [employer] 07:23:50 Hyperlip idemia 43312843 Active 2023 Leigh Rosenthal MD [address] [place] [address], [phone] , [employer] 4 07:23:53 Serum creatini ne above referenc e range 351424153 Active 2023 Leigh Rosenthal MD [address] [place] [address], [address] , [employer] 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 4 07:23:47 Influenz a 1530877 Completed 201601/22/2017 Problem Code: J10.1; Problem Code Type: ICD-10; Not Available [facility] 2 21:18:14 Neck pain 65275117 Completed 201703/28/2018 Not Available [facility] 2 21:18:14 Dysthymi a 55844652 Completed 201512/15/2015 Problem Code: R53.81; Problem Code Type: ICD-10; Not Available [facility] 2 21:18:14 Choleste rol screenin g Completed 201503/15/2016 Not Available [facility] 2 21:18:15 Body mass index 30+ - obesity 695131138 Active 2018 Problem Code: Z68.31; Problem Code Type: ICD-10; Not Available [facility] 2 21:18:15 Testicul ar hypofunc tion 023607149 Completed 201601/18/2017 Problem Code: 257.2; Problem Code Type: ICD-9; Not Available [facility] 21:18:15 Benign essentia l everette satnam 8195523 Completed 201601/27/2018 Problem Code: 401.1; Problem Code Type: ICD-9; Not Available [facility] 2 21:18:16 Benign essentia l everette satnam 4007064 Completed 201508/04/2018 Problem Code: 401.1; Problem Code Type: ICD-9; Not Available [facility] 2 21:18:16 Influenz a with respirat ory manifest ation other than pneumoni a Completed 201601/22/2017 Problem Code: 487.1; Problem Code Type: ICD-9; Not Available [facility] 21:18:17 Extrapyr amidal disease 13757567 Completed 201511/10/2015 Problem Code: 333.99; Problem Code Type: ICD-9; Not Available [facility] 2 21:18:17 Malaise and fatigue 044125057 Completed 201512/15/2015 Problem Code: 780.79; Problem Code Type: ICD-9; River Fajardo, [address], [address] , [facility] [employer] 16:29:35 Hyperlip idemia screenin g Completed 201503/15/2016 Problem Code: V77.91; Problem Code Type: ICD-9; Not Available [facility] 21:18:17 Problem Notes None recorded. Procedures Surgical History Date Name Laterality Status Provider Name and Address Organization Details Recorded Time 09/08/19 16 screening colonoscopy completed Not Available [facility] 05/04/2022 22:56:18 Imaging Results None recorded. Procedure Notes None recorded. Medical Equipment None Reported. Allergies Allergen ID Allergen Name Allergen Category Reaction Reaction Severity Criticality Documentation Date Start Date Code Code System Note Provider Name and Address Organization Details Recorded Time 52884 Product containin g glucocort icoid (product) medicatio n rash Not available Not available 05/04/2022 [id number] SHAYLA Harmon MD [address] [place], [address], [facility] [employer], [facility]. 4 15:24:08 Medications Name Sig Start Date Stop Date Status Note LastModified by Organization Details LastModified Time cyclobenzap rine 10 mg tablet Take 1 tablet(s) by mouth at bedtime prn. 03/28 completed Not Available Not Available Not Available venlafaxine ER 75 mg capsule,ext ended release 24 hr TAKE ONE CAPSULE BY MOUTH DAILY 2024 active Not Available Not Available Not Avai lable omega-3 fatty acids 1,000 mg capsule Take one capsule twice daily 05/12 completed Not Available Not Available Not Available lisinopril 20 mg-hydrochl orothiazide 12.5 mg tablet Take 1 tablet(s) by mouth daily 05/04 completed Not Available Not Available Not Available Effexor XR 37.5 mg capsule,ext ended release Take 1 capsule(s ) by mouth daily 12/01 completed Not Available Not Available Not Available lisinopril 20 mg tablet Take 1 tablet by mouth daily 11/25 completed Not Available Not Available Not Available amlodipine 5 mg tablet Take 1 tablet(s) by mouth daily 09/11 completed Not Available Not Available Not Available Tamiflu 75 mg capsule Take 1 capsule(s ) by mouth bid for 5 days 12/28 completed Not Available Not Available Not Available spironolact one 25 mg tablet TAKE 1 TABLET BY MOUTH ONCE DAILY 2024 active Not Available Not Available Not Avai lable bisoprolol fumarate 5 mg tablet Take 1 tablet(s) by mouth daily 10/15 completed Not Available Not Available Not Available dicyclomine 20 mg tablet Take 1 tablet(s) by mouth before each meal and at bedtime 05/13 completed Not Available Not Available Not Available amlodipine 10 mg tablet TAKE 1 TABLET BY MOUTH ONCE DAILY 2024 active Not Available Not Available Not Avai lable lisinopril 10 mg tablet Take 1 tablet(s) by mouth daily 09/29 completed Not Available Not Available Not Available valsartan 320 mg tablet TAKE 1 TABLET BY MOUTH ONCE DAILY 2024 active Not Available Not Available Not Avai lable testosteron e cypionate 200 mg/mL intramuscul ar oil INJECT 0.5ML INTRAMUSC ULARLY ONCE A WEEK DISCARD EACH VIAL AFTER USE active Not Available Not Available No t Available BD Luer-Cara Syringe 3 mL 18 x 1 1/2 USE WEEKLY FOR INJECTION S TO DRAW UP TESTOSTER ONE INTRAMUSC ULARLY 06/23 completed Not Available Not Available Not Available lisinopril 40 mg tablet Take 1 tablet(s) by mouth daily 05/07 completed Not Available Not Available Not Available amlodipine 10 mg-atorvast atin 10 mg tablet Take 1 tablet(s) by mouth daily 09/11 completed Not Available Not Available Not Available [place] 05/12 completed Medic ation ID: ''; Medic ation Name: 'OTC Danny ra'; Juliette ptTyp e: ''; Not Available Not Available Not Available hydrochloro thiazide 12.5 mg tablet Take 1 tablet(s) by mouth daily 10/18 completed Not Available Not Available Not Available BD Regular Bevel Rowe 22 gauge x 1 1 NEEDLE EVERY OTHER WEEK WITH TESTOSTER ONE 06/23 completed Not Available Not Available Not Available Havrix (PF) 1,440 DENNIS unit/mL intramuscul ar suspension Give 1 ML IM x 1 dose please. 11/02 completed Not Available Not Available Not Available Vitals Date Recorded Body height Body mass index (BMI) Body weight Body temperature Oxygen saturation Oxygen saturation in Arterial blood by Pulse oximetry Heart rate Systolic blood pressure Diastolic blood pressure Provider Name and Address Organization Details Last Updated DateTime 4 175.26 cm 35.4 kg/m2 793908. 01 g 97.4 [degF] 100 % 100 % 77 /min 135 mm[Hg] 77 mm[Hg] JEREMIAH ALVAREZ [facility] 4 14:50:15 Date Recorded Body height Body mass index (BMI) Body weight Heart rate Oxygen saturation Oxygen saturation in Arterial blood by Pulse oximetry Systolic blood pressure Diastolic blood pressure Provider Name and Address Organization Details Last Updated DateTime 3 175.26 cm 35.3 kg/m2 437539. 58 g 79 /min 95 % 95 % 134 mm[Hg] 87 mm[Hg] JEREMIAH [facility] 3 16:05:14 Date Recorded Body height Body mass index (BMI) Body weight Body temperature Heart rate Oxygen saturation Oxygen saturation in Arterial blood by Pulse oximetry Systolic blood pressure Diastolic blood pressure Provider Name and Address Organization Details Last Updated DateTime 5 182.88 cm 33.4 kg/m2 140902. 12 g 96.8 [degF] 85 /min 95 % 95 % 124 mm[Hg] 87 mm[Hg] [employer] 5 15:53:05 Date Recorded Body height Body mass index (BMI) Body weight Body temperature Heart rate Oxygen saturation Oxygen saturation in Arterial blood by Pulse oximetry Systolic blood pressure Diastolic blood pressure Provider Name and Address Organization Details Last Updated DateTime 3 175.26 cm 36.6 kg/m2 661564. 47 g 97.8 [degF] 80 /min 94 % 94 % 122 mm[Hg] 80 mm[Hg] JEREMIAH [facility] 3 17:06:26 Date Recorded Body height Body mass index (BMI) Body weight Heart rate Oxygen saturation Oxygen saturation in Arterial blood by Pulse oximetry Body temperature Systolic blood pressure Diastolic blood pressure Provider Name and Address Organization Details Last Updated DateTime 4 182.88 cm 32.7 kg/m2 839622. 2 g 70 /min 96 % 96 % 96.7 [degF] 135 mm[Hg] 91 mm[Hg] [employer] 4 15:29:13 Social History Question Answer Notes LastModified by Organizat ion Details LastModified Time Tobacco Smoking Status Never Smoker SocialHi storyQue stion: 'Tobacco /Alcohol /Supplem ents'; SocialHi storyGeovani beste: 'Never Smoker'; Not Available [facility] 05/04/2022 22:58:37 Do You Have An Advance Directive? No Information not available 06/23/2022 Is Your Home Air Conditioned? Yes Information not available 06/23/2022 Do You Wear A Helmet When Biking? No Information not available 06/23/2022 Are You Blind Or Do You Have Difficulty Seeing? No Information not available 06/23/2022 What Is Your Level Of Caffeine Consumption? Occasional Information not available 06/23/2022 Are You A Caregiver? No Information not available 06/23/2022 What Type Of Silk Brusher Do You Use? None Information not available 06/26/2024 Have You Been To An Area Known To Be High Risk For COVID-19? No Information not available 06/23/2022 Are You Deaf Or Do You Have Serious Difficulty Hearing? No Information not available 06/23/2022 What Type Of Diet Are You Following? REGULAR Information not available 06/23/2022 What Is The Highest Grade Or Level Of School You Have Completed Or The Highest Degree You Have Received? [id number] Information not available 06/23/2022 Who Is Your Employer? [employer] Information not available 06/23/2022 Have There Been Any Changes To Your Family Or Social Situation? No Information not available 06/23/2022 Are There Any Guns Present In Your Home? Yes Information not available 06/23/2022 Which Of Your Hands Is Dominant? Right Information not available 06/23/2022 What Is Your Home Situation? Both Parents Information not available 06/26/2024 Where Do You Live? SingleLevelHouse Information not available 06/23/2022 Do You Have A Medical Power Of Spanish Lecturer? No Information not available 06/23/2022 What Was The Date Of Your Most Recent Tobacco Screening? 06/26/2024 Information not available 06/26/2024 Are There Any Occupational Health Risks Where You Work? No Information not available 06/26/2024 Do You Have Any Pets? Yes Information not available 06/26/2024 Do You Use Protection During Sex? No Information not available 06/23/2022 Do You Use Protection Against STDs? No Information not available 06/23/2022 What Is Your Relationship Status? Information not available 06/23/2022 Have You Repeated Any Grades? No Information not available 06/26/2024 Do You Use Your Seat Belt Or Car Seat Routinely? Yes Information not available 06/23/2022 Are You Sexually Active? Yes Information not available 06/23/2022 Do You Have Any Siblings? Yes Information not available 06/26/2024 Do You Have Smoke And Carbon Monoxide Detectors In Your Home? Yes Information not available 06/23/2022 Are You Passively Exposed To Smoke? No Information not available 06/23/2022 Are There Any Smokers In Your House? No Information not available 06/23/2022 Do You Participate In Social Media? Yes Information not available 06/23/2022 What Types Of Sporting Activities Do You Participate In? Hunting Information not available 06/26/2024 Do You Use Sunscreen Routinely? No Information not available 06/26/2024 Has Tobacco Cessation Counseling Been Provided? No Information not available 06/23/2022 Have You Recently Traveled Abroad? No Information not available 06/23/2022 Do You Have Difficulty Walking Or Climbing Stairs? No Information not available 06/23/2022 Are You Currently In School? No Information not available 06/23/2022 What Contraceptive Method Was Reported At Start Of This Visit? Decline To Answer Information not available 06/23/2022 Do You Have Any Dietary Restrictions? No Information not available 06/23/2022 Sex: Male Functional Status Question Answer Note LastModified by Organizat ion Details LastModified Time Do you use any illicit or recreational drugs? No Information not available 06/23/2022 Do you or have you ever used any other forms of tobacco or nicotine? No Information not available 06/23/2022 What is your level of alcohol consumption? None [facility] Information not available 06/23/2022 Are you currently employed? Yes [employer] Information not available 06/23/2022 Do you have transportation difficulties? No Information not available 06/23/2022 Are you able to walk? YESWOREST Information not available 06/23/2022 Do you have difficulty doing errands alone? No [facility] Information not available 06/23/2022 Are you able to care for yourself? Yes Information not available 06/23/2022 Do you have difficulty dressing or bathing? No [facility] Information not available 06/23/2022 What is your exercise level? None [facility] Information not available 06/23/2022 Mental Status Question Answer Note LastModified by Organizat ion Details LastModified Time Do you feel stressed (tense, restless, nervous, or anxious, or unable to sleep at night)? [id number] [facility] Information not available 06/23/2022 Do you have difficulty concentrating, remembering or making decisions? No [facility] Information no t available 06/23/2022 Are you or have you been involved with bullying? No Information not available 06/26/2024 Family History Relationship Description Onset Age of this Age Resolved Age Notes LastModified by Organization Details LastModified Time Unspecified Relation Family history of Hypertension Relati ve: ''; [email or web address] Not available 06/26/2024 15:23:54 Father Hypertensive disorder [email or web address] Not available 05/30 15:23:54 Notes:*Procedure Description : Documented family medical history in mother*Relative: Mother *Procedure Description: Documented family medical history in father*Relative: Father Medical History Condition Response Hypertension Y Immunizations Vaccine Type Date Status Note Provider Nam e and Address Organization Details Recorded Time COVID-19, mRNA, LNP-S, PF, 10 mcg/0.2 mL dose, april-sucrose 1 completed Not Available [facility] 05/05/2022 00:03:41 COVID-19, mRNA, LNP-S, PF, 10 mcg/0.2 mL dose, april-sucrose 1 completed Not Available [facility] 05/05/2022 00:03:41 Tdap 6 completed Not Available [facility] 06/21/2023 21:04:00 Influenza, split virus, quadrivalent, preservative 5 completed Not Available [facility] 06/21/2023 21:04:00 Hep A, adult 8 completed Not Available [facility] 05/05/2022 00:03:41 COVID-19, mRNA, LNP-S, PF, 30 mcg/0.3 mL dose 1 completed Not Available [facility] 01/28/2025 15:48:11 Past Encounters Encounter ID Performer Location Encounter Start Date Encounter Closed Date Diagnosis/Indication Diagnosis SNOMED-CT Code Diagnosis ICD10 Code Diagnosis Note [id number] River Fajardo [address] [address] 06/23/2022 16:00:51 06/25/2022 13:27:28 Hypertensive disorder 61804457 I10 Continue current medication . Generalize d anxiety disorder 64879086 F41.1 Doing well. Continue current medication . Hypogonadism 96961176 E2 9.1 Follows with urology for testostero ne therapy. Anxiety 68303090 F41.9 [id number] River Fajardo [address] [address] 12/22/2022 15:53:15 12/22/2022 16:22:00 Hypertensive disorder 73492395 I10 Continue current medication . Generalize d anxiety disorder 19107735 F41.1 Doing well. Continue current medication . Hypogonadism 31735036 E2 9.1 Follows with urology for testostero ne therapy. [id number] River Fajardo [address] [address] 06/21/2023 16:42:35 06/21/2023 18:06:32 Hypertensive disorder 97859984 I10 Continue current medication . Generalize d anxiety disorder 69791756 F41.1 Doing well. Continue current medication . Hypogonadism 53111685 E2 9.1 Follows with urology for testostero ne therapy. Body mass index 30+ - obesity 232561876 Z68.36 [id number] River Fajardo DO [address] [address] 12/06/2023 14:40:05 12/07/2023 11:08:21 Body mass index 30+ - obesity 867834343 Z68.35 Hypertensive disorder 38 813482 I10 Continue current medication s. We do not have record of his Lipid or UA ordered back in 06/20, will order new labs for him. Generalize d anxiety disorder 15571939 F41.1 Doing well. Continue current medication . Hypogonadism 83205797 E2 9.1 Follows with urology for testostero ne therapy. He is a patient of Dr. Jules. [id number] Leigh Rosenthal MD [address] [address] 06/26/2024 15:21:33 06/26/2024 15:49:15 Generalized anxiety disorder 03930127 F41.1 stable on current meds Body mass index 30+ - obesity 224668844 Z68.32 Discussed DASH diet, exercise goals (150 min moderate intensity exercise per week, 8-10k steps/day) , low fat/choles terol diet, increased protein/wh ole grains etc. Hypertensive disorder 38 745050 I10 stable. recheck labs today. will refill meds pending this. Hypogonadism 20162235 E2 9.1 stable per urology. Hyperlipidemia 02902027 E78.5 consider FLP w/ next visit. Serum crea tinine above reference range 924297645 R79.89 ?[place] vs CKD in the setting of HTN. Recheck today. further recs pending this. [id number] Leigh Rosenthal MD [address] [address] 01/28/2025 15:47:56 01/28/2025 16:26:44 Adult health examination 184884742 Z00.00 Generalize d anxiety disorder 13673358 F41.1 stable on current meds Hypertensive disorder 38 022822 I10 stable. return for labs Hypogonadism 67494326 E2 9.1 stable per urology. check testostero ne and PSA w/ lab draw and will send to urologist. pt to let me know tomorrow if additional labs are needed Hyperlipidemia 35132128 E78.5 FLP when pt returns Serum crea tinine above reference range 586093664 R79.89 likely mild CKD. recheck w/ lab draw Body mass index 30+ - obesity 292978784 Z68.33 Discussed DASH diet, exercise goals (150 min moderate intensity exercise per week, 8-10k steps/day) , low fat/choles terol diet, increased protein/wh ole grains etc. Screening for malignant neoplasm of colon 525440768 Z12.11 Prostate s pecific antigen measurement 84342897 Z12.5 Diabetes m ellitus screening 799422602 Z13.1 Health Concerns Section Related Observation LastModified by Organization Detai ls LastModified Time None Recorded Concern Status LastModified by Organization Details LastModified Time None Recorded Advance Directives Directive N: Payers Insurance Date Sequence Insurance Name Policy Number Policy Villasenor Covered Member ID Villasenor Member ID Guarantor Name 02/06/2025 1 [place] [id number] 9 Miriam Dorado Workman [id number] Yasir Malik Workman Notes Date Note Type Note Provider Name and Address Organization Details Recorded Time 12/22/2022 text/html Patient is here for 6 month check up for hypertension; states that everything is going well and does not have any complaints; states that he does not check BP at home but does check it at work occasionally (every couple months) where it runs 130/90ishHas lost about 20 pounds but gained 10 back.Continues to follow with urology.Colonoscopy needed in 2025 (at 55 years old) River Fajardo DO [address] [place] [address], [phone], [employer] 12/22/2022 16:19:54 06/21/2023 text/html Patient is here for 6 month check up for hypertension; states that everything is going well and does not have any complaints; states that he does not check BP at home about 120/80sishHas lost about 20 pounds but gained about 20 back.Continues to follow with urology.Colonoscopy needed in 2025 (at 55 years old). River Fajardo DO [address] [place], [address], [employer] 06/21/2023 18:03:55 12/06/2023 text/html Yasir Palomo is a 53-year-old male patient here for a 6-month follow-up appointment for chronic conditions. Past medical history includes hypertension and anxiety. He is sees urology for hypogonadism. Patient had labs done in [place], [place] and requested them to be sent to our office but only records we show are a BMP, still need a UA and Lipid panel. Patient states he lost about 10 lbs and feels healthier- trying to loose weight. He will need a colonoscopy in 2025 (at 55 years old). River Fajardo DO [address] [place], [address], [employer]. 12/06/2023 15:32:58 06/26/2024 text/html [employer] to me; transf er from Dr. Fajardo. 1. HTN:On amlodipine 10mg daily, Valsartan 320mg daily, spironolactone 25mg daily.Occ BP checks at work 130s/90. 2. Anxiety:On effexor XR 75mg daily. Stable. 3. Hypogonadism:On testosterone per urology. 4. HLD:01/13/24 lipid panel: total 196, HDL 44, TG 211, LDL 119. 5. Obesity:Struggles to lose wt; sierra since being on testosterone therapy.Someone gave him a Mounjaro sample and he's been on this for a few weeks.Initially had GERD; resolved. 6. Abnl creatinine:01/13/24 Cr 1.43. Was supposed to have f/u but never did. Leigh Rosenthal MD [address] [place] [address], [address], [employer] 06/26/2024 15:47:09 01/28/2025 text/html Annual WellnessReported bypatient.Diet and Nutrition:discussed vitamin and supplement use; discussed portion control; discussed maintaining calcium balance; discussed diet improvement Fracture Risk:no sudden unexplained fractures Physical Activity:discussed weightbearing activities; discussed exercise habits Additional Lifestyle Factors:no tobacco use Depression Risk:never feels sad, empty, or tearful; no loss of interest in activities; no significant changes in weight; no sleep disturbances or insomnia; no agitation; no loss of energy; no feelings of worthlessness or guilt; no thoughts of suicide; no history of depression; no history of mood disorders Hearing:no loss of hearing Vision:no vision problems 1. AWV:Tdap: UTDCovid: Advised to considerFlu: Advised to considerShingrix: Advised to considerPSA: Will check w/ labs.Colon: 2012; [facility] (overdue).Eye: UTD per pt (Dr. Pamella Palomo).Dental: UTD per pt. 1. HTN:On amlodipine 10mg daily, Valsartan 320mg daily, spironolactone 25mg daily.Occ BP checks at work 130s/90. 2. Anxiety:On effexor XR 75mg daily. Stable. 3. Hypogonadism:On testosterone per urology. Miriam Alonso [facility].Due for labs this month. 4. HLD:01/13/24 lipid panel: total 196, HDL 44, TG 211, LDL 119. 5. Abnl creatinine:01/13/24 Cr 1.43.06/26/24 Cr 1.33.07/03/24 Cr 1.77 Leigh Rosenthal MD [address] [place] [address], [phone], [facility] [employer] 01/28/2025 16:14:38
--- OUTSIDE RECORDS SUMMARY | 2025-02-12 07:09 | XMS_ITS | Continuity of Care Document ---
Author Organization [facility] Address [address] [place] [address] Assessment No assessment recorded. Plan of Treatment Reminders Order Date Submit Date Provider Last Modified By Organization Details Last Modified Time Details Appointments FOLLOW UP 30 2024 04:30P Joyce curry MD Not available Not available Not available Lab lipid panel, serum or plasma 2024 025 [facility]), [address] [place], [address], 02/05/2025 15:08:27 CBC w/ auto diff 2024 025 [facility], [address] [place] [address], [address], 02/05/2025 15:08:26 testost erone, free + total, serum 2024 025 [facility]), [address] [place] [address], [address], 02/05/2025 15:08:28 HbA1c (hemogl obin A1c), blood 2024 025 [facility], [address] [place] [address], [address], 02/05/2025 15:08:29 PSA, serum or plasma 2024 025 [facility], [address] [place] [address] [place], [address], 02/05/2025 15:08:28 CMP, serum or plasma 2024 025 [place] [facility]), [address] [place], [address], 02/05/2025 15:08:27 Referral gastroe nterolo gist referra l 2024 025 adilene Andrew MD, [address] [place] [address], [facility], [place], [address], 02/11/2025 14:59:40 Procedures None recorde d. Surgeries None recorde d. Imaging None recorde d. Medication Orders amlodip ine 10 mg tablet 2024 025 [facility], [address], [place], [address], 01/28/2025 16:12:11 valsart an 320 mg tablet 2024 025 [facility], [address], [place], [address], 01/28/2025 16:12:16 spirono lactone 25 mg tablet 2024 025 [facility], [address], [place], [address], 01/28/2025 16:12:12 venlafa xine ER 75 mg capsule ,extend ed release 24 hr 2024 025 [facility], [address], [place], [address], 01/28/2025 16:12:12 Patient TargetsNo targets recorded. 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 4 07:23:47 Hypogona dism 24558724 Active 2023 Leigh Rosenthal MD [address] [place] [address], [address] , [employer] 4 07:23:50 Hyperlip idemia 44400229 Active 2023 Leigh Rosenthal MD [address] [place] [address], [address] , [employer] 4 07:23:53 Serum creatini ne above referenc e range 115519429 Active 2023 Leigh Rosenthal MD [address] [place] [address], [address] , [employer] 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 4 07:23:47 Influenz a 1474416 Completed 201601/22/2017 Problem Code: J10.1; Problem Code Type: ICD-10; Not Available [facility] 2 21:18:14 Neck pain 78470637 Completed 201703/28/2018 Not Available [employer] 2 21:18:14 Dysthymi a 92123670 Completed 201512/15/2015 Problem Code: R53.81; Problem Code Type: ICD-10; Not Available [facility] 2 21:18:14 Choleste rol screenin g Completed 201503/15/2016 Not Available [facility] 2 21:18:15 Body mass index 30+ - obesity 769901932 Active 2018 Problem Code: Z68.31; Problem Code Type: ICD-10; Not Available [facility] 2 21:18:15 Testicul ar hypofunc tion 381684087 Completed 201601/18/2017 Problem Code: 257.2; Problem Code Type: ICD-9; Not Available [facility] 2 21:18:15 Benign essentia l hyperten satnam 7266247 Completed 201601/27/2018 Problem Code: 401.1; Problem Code Type: ICD-9; Not Available [facility] 2 21:18:16 Benign essentia l hyperten satnam 7738803 Completed 201508/04/2018 Problem Code: 401.1; Problem Code Type: ICD-9; Not Available [facility] 2 21:18:16 Influenz a with respirat ory manifest ation other than pneumoni a Completed 201601/22/2017 Problem Code: 487.1; Problem Code Type: ICD-9; Not Available [facility] 2 21:18:17 Extrapyr amidal disease 85318676 Completed 201511/10/2015 Problem Code: 333.99; Problem Code Type: ICD-9; Not Available [facility] 2 21:18:17 Malaise and fatigue 795180151 Completed 201512/15/2015 Problem Code: 780.79; Problem Code Type: ICD-9; River Fajardo, [address] [place] [address], [address] , [email or web address] 2 16:29:35 Hyperlip idemia screenin g Completed 201503/15/2016 Problem Code: V77.91; Problem Code Type: ICD-9; Not Available [facility] 2 21:18:17 Problem Notes None recorded. Procedures Surgical History Date Name Laterality Status Provider Name and Address Organization Details Recorded Time 09/08/19 16 screening colonoscopy completed Not Available [facility] 05/04/2022 22:56:18 Imaging Results None recorded. Procedure Notes None recorded. Medical Equipment None Reported. Allergies Allergen ID Allergen Name Allergen Category Reaction Reaction Severity Criticality Documentation Date Start Date Code Code System Note Provider Name and Address Organization Details Recorded Time 73551 Product containin g glucocort icoid (product) medicatio n rash Not available Not available 05/04/2022 86672 6006 SNOMED Leigh curry MD [address] [place] [address], [phone], [email or web address] 4 15:24:08 Medications Name Sig Start Date [...] ID: ''; Medic ation Name: 'OTC Danny florez'; Juliette ptTyp e: ''; Not Available Not Available Not Available hydrochloro thiazide 12.5 mg tablet Take 1 tablet(s) by mouth daily 10/18 completed Not Available Not Available Not Available BD Regular Bevel [place] 22 gauge x 1 1 NEEDLE EVERY [...] Updated DateTime 5 182.88 cm 33.4 kg/m2 123982. 12 g 96.8 [degF] 85 /min 95 % 95 % 124 mm[Hg] 87 mm[Hg] Viv Chowdhuryley [place] [employer] 5 15:53:05 Social History Question Answer Notes LastModified by Organizat ion Details LastModified Time Tobacco Smoking Status Never Smoker SocialHi storyJay hendrix: 'Tobacco /Alcohol /Supplem ents'; SocialHi storyGeovani mcginnis: 'Never Smoker'; Not Available [facility] 05/04/2022 22:58:37 Do You Have An Advance [...] Information not available 06/23/2022 What Type Of Hedis Specialist Do You Use? None Information not available [...] Or The Highest Degree You Have Received? [id number] Information not available 06/23/2022 Who Is Your Employer? [employer] Information not available 06/23/2022 Have There Been [...] Do You Have A Medical Power Of Interactive Media Marketing Strategist? No Information not available 06/23/2022 What Was [...] is your level of alcohol consumption? None Information not available 06/23/2022 Are you currently employed? Yes Information not available 06/23/2022 Do you have transportation difficulties? No Information not available 06/23/2022 Are you able to walk? YESWOREST Information not available 06/23/2022 Do you have difficulty doing errands alone? No Information not available 06/23/2022 Are you able to care for yourself? Yes Information not available 06/23/2022 Do you have difficulty dressing or bathing? No Information not available 06/23/2022 What is your exercise level? None Information not available 06/23/2022 Mental Status Question Answer Note LastModified by Organizat ion Details LastModified Time Do you feel stressed (tense, restless, nervous, or anxious, or unable to sleep at night)? [id number] [employer] Information not available 06/23/2022 Do you have difficulty concentrating, remembering or making decisions? No [employer] no t available 06/23/2022 Are [...] mL dose, april-sucrose 1 completed Not Available [facility] 05/05/2022 00:03:41 COVID-19, mRNA, LNP-S, PF, 10 mcg/0.2 mL dose, april-sucrose 1 completed Not Available [facility] 05/05/2022 00:03:41 Tdap 6 completed Not Available [facility] 06/21/2023 21:04:00 Influenza, split virus, quadrivalent, preservative 5 completed Not Available [facility] 06/21/2023 21:04:00 Hep A, adult 8 completed Not Available [facility] 05/05/2022 00:03:41 COVID-19, mRNA, LNP-S, PF, 30 mcg/0.3 mL dose 1 completed Not Available [facility] 01/28/2025 15:48:11 Past Encounters Encounter ID Performer Location Encounter Start Date Encounter Closed Date Diagnosis/Indication Diagnosis SNOMED-CT Code Diagnosis ICD10 Code Diagnosis Note [id number] Leigh Rosenthal MD [facility] - [address] [address] 01/28/2025 15:47:56 01/28/2025 16:26:44 Adult health examination 400128483 Z00.00 Generalize d anxiety disorder 94425246 F41.1 stable on current meds Hypertensive disorder 38 569871 I10 stable. return for labs Hypogonadism 11657777 E2 9.1 stable per urology. check testostero ne and PSA w/ lab draw and will send to urologist. pt to let me know tomorrow if additional labs are needed Hyperlipidemia 42995724 E78.5 FLP when pt returns Serum crea tinine above reference range 241033411 R79.89 likely mild CKD. recheck w/ lab draw Body mass index 30+ - obesity 318081488 Z68.33 Discussed DASH diet, exercise goals (150 min moderate intensity exercise per week, 8-10k steps/day) , low fat/choles terol diet, increased protein/wh ole grains etc. Screening for malignant neoplasm of colon 838563582 Z12.11 Prostate s pecific antigen measurement 70267132 Z12.5 Diabetes m ellitus screening 510531266 Z13.1 Health Concerns Section Related Observation LastModified by Organization Detai ls LastModified Time None Recorded Concern Status LastModified by Organization Details LastModified Time None Recorded Payers Encounter Date Sequence Insurance Name Policy Number Policy Villasenor Covered Member ID Villasenor Member ID Guarantor Name 01/28/2025 1 [place] [id number] Miriam Dorado Workman [id number] Yasir Malik Workman Notes Date Note Type Note Provider Name and Address Organization Details Recorded Time 01/28/2025 text/html Annual WellnessReported bypatient.Diet and Nutrition:discussed [...] to considerPSA: Will check w/ labs.Colon: 2012; [facility] (overdue).Eye: UTD per pt (Dr. Pamella Palomo).Dental: UTD per pt. 1. HTN:On amlodipine 10mg daily, Valsartan 320mg daily, spironolactone 25mg daily.Occ BP checks at work 130s/90. 2. Anxiety:On effexor XR 75mg daily. Stable. 3. Hypogonadism:On testosterone per urology. Miriam Alonso [facility].Due for labs this month. 4. HLD:01/13/24 lipid panel: total 196, HDL 44, TG 211, LDL 119. 5. Abnl creatinine:01/13/24 Cr 1.43.06/26/24 Cr 1.33.07/03/24 Cr 1.77 Leigh Rosenthal MD [address] [place] [address], [address], [facility] [employer] 01/28/2025 16:14:38
--- OUTSIDE RECORDS SUMMARY | 2025-02-12 07:09 | XMS_ITS | Continuity of Care Document ---
Author Organization [facility] Address [address] [place] [address] Care Team Providers Care [employer] Teacher Name Role Phone [facility] Primary Care Provider [phone] MIRIAM VALDOVINOS Urologist Unavailable Assessment No assessment recorded. Plan of Treatment Reminders Order Date Submit Date Provider Last Modified By Organization Details Last Modified Time Details Appointments TELEPHONI C VISIT 15 2024 03:45P M Miriam Valdovinos NP Not available Not available Not available Lab testoster one, total, serum 2024 025 [facility] (Outpatient Registration) , [address], [place], [address], 01/09/2025 08:30:25 CBC 2024 025 [facility] (Outpatient Registration) , [address], [place], [address], 01/09/2025 08:30:25 lipid panel, serum 2024 025 [facility] (Outpatient Registration) , [address], [place], [address], 01/09/2025 08:30:25 CMP, serum or plasma 2024 025 [facility] (Outpatient Registration) , [address] [place], [address], 01/09/2025 08:30:25 estradiol , serum 2024 025 [facility] (Outpatient Registration) , [address], [place], [address], 01/09/2025 08:34:38 Referral None recorded. Procedures None recorded. Surgeries None recorded. Imaging None recorded. Medication Orders testoster one cypionate 200 mg/mL intramusc ular oil 2024 025 [facility], [address], [place], [address], 01/09/2025 08:36:33 Patient TargetsNo targets recorded. Patient InstructionsNo instructions recorded. Reason for Referral None Reported. Problems Name Problem SNOMED Code Status Onset Date Resolution Date Notes Provider Name and Address Organization Details Recorded Time Hypogonadism 95151218 Active 024 Chana manzoVA [facility] & [place] 4 16:44:39 Problem Notes None recorded. Medical Equipment None Reported. Allergies Allergen ID Allergen Name Allergen Category Reaction Reaction Severity Criticality Documentation Date Start Date Code Code System Note Provider Name and Address Organization Details Recorded Time 59403 Non-stero idal anti-infl ammatory agent (product) medicatio n Not available Not available Not available 06/24/2022 77524 005 SNOMED Miriam manzoVA [facility] & [place] 2 16:50:51 Medications Name Sig Start Date Stop Date Status Note LastModified by Organization Details LastModified Time venlafaxine ER 75 mg capsule,exte nded release 24 hr active Not Available Not Available Not Available spironolacto ne 25 mg tablet TAKE 1 TABLET BY MOUTH ONCE DAILY active Not Available Not Available No t Available amlodipine 10 mg tablet TAKE 1 TABLET BY MOUTH ONCE DAILY active Not Available Not Available No t Available valsartan 320 mg tablet TAKE 1 TABLET BY MOUTH ONCE DAILY active Not Available Not Available No t Available testosterone cypionate 200 mg/mL intramuscula r oil INJECT 0.5ML INTRAMUSCUL BOOM ONCE A WEEK DISCARD EACH VIAL AFTER USE active Not Available Not Available No t Available BD Luer-Cara Syringe 3 mL 18 x 1 1/2 USE WEEKLY FOR INJECTIONS TO DRAW UP TESTOSTERON E INTRAMUSCUL BOOM active Not Available Not Available No t Available BD Regular Bevel [place] 22 gauge x 1 1 NEEDLE EVERY OTHER WEEK WITH TESTOSTERON E active Not Available Not Available No t Available Vitals Date Recorded Body height Body mass index (BMI) Body weight Body temperature Oxygen saturation Oxygen saturation in Arterial blood by Pulse oximetry Heart rate Systolic blood pressure Diastolic blood pressure Provider Name and Address Organization Details Last Updated DateTime 5 172.72 cm 36.5 kg/m2 496720. 17 g 97.7 [degF] 98 % 98 % 70 /min 120 mm[Hg] 70 mm[Hg] Chana Garcia [facility] & [place] 5 08:32:44 Social History Question Answer Notes LastModified by Ateo Details LastModified Time Tobacco Smoking Status Never Smoker Miriam manzo, [facility] & [place] 06/24/2022 16:53:14 What Is Your Level Of Caffeine Consumption? Occasional [email or web address] Information not available 06/24/2022 Sex: Unknown Functional Status Question Answer Note LastModified by Ateo Details LastModified Time Do you use any illicit or recreational drugs? No [email or web address] Information not available 06/24/2022 What is your level of alcohol consumption? None [email or web address] Information not available 06/24/2022 Mental Status None recorded. Family History Nothing Reported Notes:mother alive hypertens ion father alive healthy sister alive healthy Medical History No medical history recorded. Past Encounters Encounter ID Performer Location Encounter Start Date Encounter Closed Date Diagnosis/Indication Diagnosis SNOMED-CT Code Diagnosis ICD10 Code Diagnosis Note [id number] Miriam Valdovinos NP, S [facility] [place] [address] 01/09/2025 08:24:15 01/09/2025 08:36:19 Testosterone level below reference range 983994170 R79.89 90 day Aydin and Consent performedL abwork order provided for pt to have performedC ontinue current HRT regimen4 week Telephone for Testostero ne Refills Health Concerns Section Related Observation LastModified by Organization Detai ls LastModified Time None Recorded Concern Status LastModified by Organization Details LastModified Time None Recorded Payers Encounter Date Sequence Insurance Name Policy Number Policy Villasenor Covered Member ID Villasenor Member ID Guarantor Name 01/09/2025 1 [place] [id number] Miriam Palomo [id number] Yasir Palomo Notes Date Note Type Note Provider Name and Address Organization Details Recorded Time 01/09/2025 text/html 01/09/2025 53 yowm RTC for 90 day Aydin/Consent. 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 Reports good results from the medication and energy level and denies any overt SE's from the medication. 12/05/2024 I have conducted a phone consultation with this patient. I identified the patient by name and date. He gives me verbal consent to proceed with a phone consultation. My consultation begins at 14:25 AM and ended at 14:30 AM.Spent 5 minutes in Audio only visit performed at patient s request due to cant use A/V or be seen in person. Patient is at home and provider is at the office. 4 week Telephone visit for Testosterone Refills. Pt with a hx of hypogonadism treated with Testosterone Cypionate 100 mg/ml, 0.5 ml q week, injection is given by a nurse at his worksite. Dosage was decreased to 0.5ml after testosterone level returned elevated at 909 and polycythemia was noted on 12/28/2022. Reports good results from the medication and energy level and denies any overt SE's from the medication. 11/07/2024 53 yowm RTC for 90 day Aydin/Consent. 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 Reports good results from the medication and energy level and denies any overt SE's from the medication. 10/10/2024 I have conducted a phone consultation with this patient. I identified the patient by name and date. He gives me verbal consent to proceed with a phone consultation. My consultation begins at 08:33 AM and ended at 08:38 AM.Spent 5 minutes in Audio only visit performed at patient s request due to cant use A/V or be seen in person. Patient is at home and provider is at the office. 4 week Telephone visit for Testosterone Refills. Pt with a hx of hypogonadism treated with Testosterone Cypionate 100 mg/ml, 0.5 ml q week, injection is given by a nurse at his worksite. Dosage was decreased to 0.5ml after testosterone level returned elevated at 909 and polycythemia was noted on 12/28/2022. Reports good results from the medication and energy level and denies any overt SE's from the medication. 09/11/2024 I have conducted a phone consultation with this patient. I identified the patient by name and date. He gives me verbal consent to proceed with a phone consultation. My consultation begins at 08:40 AM and ended at 08:45 AM.Spent 5 minutes in Audio only visit performed at patient s request due to cant use A/V or be seen in person. Patient is at home and provider is at the office. 4 week Telephone visit for Testosterone Refills. Pt with a hx of hypogonadism treated with Testosterone Cypionate 100 mg/ml, 0.5 ml q week, injection is given by a nurse at his worksite. Dosage was decreased to 0.5ml after testosterone level returned elevated at 909 and polycythemia was noted on 12/28/2022. Reports good results from the medication and energy level and denies any overt SE's from the medication. States good f/c stream; denies dysuria or gross hematuria. Patient had lab work done on 07/03/2024 that revealed Hgb 16.6, Hct 48.1, RBC 5.48, PSA 1.04, Total Testosterone 361, BUn 14, Creat 1.77, Ast 22, Alt 50, Alp 99. 07/03/2024: Hgb 16.6, Hct 48.1, RBC 5.48, PSA 1.04, Total Testosterone 361, BUn 14, Creat 1.77, Ast 22, Alt 50, Alp 9910/: hemoglobin 17.7, hematocrit 51.0, PSA was 1.0, and testosterone level was 459. Miriam Valdovinos, SIENE MAKER, S [address], [place], [address], [place] [facility] [place] 01/09/2025 08:36:39
--- OUTSIDE RECORDS SUMMARY | 2025-02-12 07:09 | XMS_ITS | Data Portability ---
Author Organization [facility] & [place] [facility] Address [address] [place] [address] Care Team Providers Care Cio Name Role Phone [facility] Primary Care Provider DEION VALDOVINOS Urologist Unavailable Assessment No assessment recorded. Plan of Treatment Reminders Order Date Submit Date Provider Last Modified By Organization Details Last Modified Time Details Appointments TELEPHONI C VISIT 15 2024 03:45P M Deion Valdovinos NP Not available Not available Not available Lab testoster one, total, serum 2024 025 [facility] (Outpatient Registration) , [address], [place], [address], 01/09/2025 08:30:25 CBC 2024 025 [facility] (Outpatient Registration) , [address], [place], [address], 01/09/2025 08:30:25 lipid panel, serum 2024 025 [facility] (Outpatient Registration) , [address], [place], [address], 01/09/2025 08:30:25 CMP, serum or plasma 2024 025 [facility] (Outpatient Registration) , [address], [place], [address], 01/09/2025 08:30:25 estradiol , serum 2024 025 [facility] (Outpatient Registration) , [address], [place], [address], 01/09/2025 08:34:38 Referral None recorded. Procedures None recorded. Surgeries None recorded. Imaging None recorded. Medication Orders testoster one cypionate 200 mg/mL intramusc ular oil 2024 025 [facility], [address], [place], [address], 01/09/2025 08:36:33 testoster one cypionate 200 mg/mL intramusc ular oil 2024 025 [facility] [id number], [address], [place], [address], 12/05/2024 14:36:48 testoster one cypionate 200 mg/mL intramusc ular oil 2024 025 [facility] [id number], [address], [place], [address], 11/07/2024 15:06:53 testoster one cypionate 200 mg/mL intramusc ular oil 2024 025 [facility] [id number], [address], [place], [address], 10/10/2024 08:42:53 testoster one cypionate 200 mg/mL intramusc ular oil 2024 025 [facility] [id number], [address], [place], [address], 09/11/2024 08:46:16 Patient TargetsNo targets recorded. Patient InstructionsNo instructions recorded. Reason for Referral None Reported. Problems Name Problem SNOMED Code Status Onset Date Resolution Date Notes Provider Name and Address Organization Details Recorded Time Hypogonadism 77464894 Active 024 CHRISTY Guillen [facility] & [place] 16:44:39 Problem Notes None recorded. Medical Equipment None Reported. Allergies Allergen ID Allergen Name Allergen Category Reaction Reaction Severity Criticality Documentation Date Start Date Code Code System Note Provider Name and Address Organization Details Recorded Time 27034 Non-stero idal anti-infl ammatory agent (product) medicatio n Not available Not available Not available 06/24/2022 47561 005 SN[facility]ED [facility] [place] 2 16:50:51 Medications Name Sig Start Date [...] Available No t Available BD Regular Bevel [place] 22 gauge x 1 1 NEEDLE EVERY OTHER WEEK WITH TESTOSTERON E active Not Available Not Available No t Available Vitals Date Recorded Body height Body mass index (BMI) Body weight Systolic blood pressure Diastolic blood pressure Provider Name and Address Organization Details Last Updated DateTime 11/07/2024 172.72 cm 37.7 kg/m2 573147.9 1 g 130 mm[Hg] 85 mm[Hg] Magalis Palomo [facility] & [place] 5 15:01:13 Date Recorded Body height Body mass index (BMI) Body weight Body temperature Oxygen saturation Oxygen saturation in Arterial blood by Pulse oximetry Heart rate Systolic blood pressure Diastolic blood pressure Provider Name and Address Organization Details Last Updated DateTime 5 172.72 cm 36.5 kg/m2 529273. 17 g 97.7 [degF] 98 % 98 % 70 /min 120 mm[Hg] 70 mm[Hg] Chana Garcia [facility] & [place] 08:32:44 Social History Question Answer Notes LastModified by Organizat ion Details LastModified Time Tobacco Smoking Status Never Smoker Deion manzo, [facility] [place] 06/24/2022 16:53:14 What Is Your Level Of Caffeine Consumption? Occasional [email or web address] Information not available 06/24/2022 Sex: Unknown Functional Status Question Answer Note LastModified by Organizat ion Details LastModified Time Do you use any illicit or recreational drugs? No [email or web address] Information not available 06/24/2022 What is your level of alcohol consumption? None [email or web address] Information not available 06/24/2022 Mental Status None recorded. Family History Nothing Reported Notes:mother alive hypertens ion father alive healthy sister alive healthy Medical History No medical history recorded. Past Encounters Encounter ID Performer Location Encounter Start Date Encounter Closed Date Diagnosis/Indication Diagnosis SNOMED-CT Code Diagnosis ICD10 Code Diagnosis Note [id number] Deion Valdovinos NP, S [facility] [address],[facility] [place] [address] 07/01/2022 15:37:01 07/01/2022 15:52:41 Hypogonadism 77377415 E29.1 90 day Consent signed and Aydin review requested. Continue current HRT regimen.RT C in 90 days for next Consent and Aydin review.Pt has order to do annual labwork [id number] Deion Valdovinos NP, [place] [address],[facility] [place] [address] 09/30/2022 15:47:36 09/30/2022 16:11:47 Testosterone level below reference range 078175741 R79.89 Lab lab results reviewed and discussed with patient clinic today. Will decrease testostero ne to 1/2 mL every week from 1 ml every week. Patient will get repeat testostero ne level and CBC prior to next visit.90 day Consent signed and Aydin review requested. RTC in 90 days for next Consent and Aydin review. [id number] Evan Jules MD [facility],[place] [address] 12/28/2022 15:35:26 12/28/2022 16:33:55 Testosterone level below reference range 865981933 R79.89 Secondary polycythemia 26272476 D75.1 borderline [id number] Evan Jules MD [facility],[facility] [place] [address] 04/05/2023 15:47:17 04/05/2023 16:16:23 Testosterone level below reference range 568219792 R79.89 Secondary polycythemia 87751168 D75.1 borderline Fatigue 76084946 R53.83 Hyperlipid emia screening 907549545 Z13.220 Screening for malignant neoplasm of prostate 798241968 Z12.5 [id number] Evan Jules MD [facility],[facility] [place] [address] 07/08/2023 15:28:07 07/08/2023 15:59:46 Testosterone level below reference range 976654928 R79.89 Secondary polycythemia 98083179 D75.1 borderline Fatigue 52759513 R53.83 Hyperlipid emia screening 341945668 Z13.220 Screening for malignant neoplasm of prostate 950162111 Z12.5 [id number] Deion Valdovinos NP, S [address],[facility] [place] [address] 10/13/2023 15:47:51 10/13/2023 16:19:52 Hypogonadism 32587882 E29.1 90 day Consent signed and [facility] review requested. Continue current HRT regimen.Te lephone visit in 4 weeks for medication refills [id number] Deion Valdovinos NP, S [facility],[facility] [place] [address] 11/10/2023 16:04:26 11/10/2023 16:06:54 Testosterone level below reference range 562115550 R79.89 [id number] Deion Valdovinos NP, S [address],[facility] [place] [address] 12/15/2023 16:00:51 12/16/2023 10:19:21 Hypogonadism 89312155 E29.1 Telephone visit in 4 weeks for medication refills [id number] Deion Valdovinos NP, S [facility] [address] [place] [address] 01/12/2024 11:56:26 01/12/2024 12:12:43 Hypogonadism 34483860 E29.1 Continue current [facility]RT. [facility] for 90 day consent and Aydin [id number] Deion Valdovinos NP, S [facility] [address] [facility] [address] 6 02/15/2024 15:13:01 02/15/2024 15:38:10 Hypogonadism 50881501 E29.1 90 day Consent signed and Aydin review requested. Continue current HRT regimen.Te lephone visit in 4 weeks for medication refills [id number] Deion Valdovinos NP, [place] [facility] [address] 6 03/14/2024 15:16:42 03/14/2024 15:23:25 Hypogonadism 75712546 E29.1 Continue current HRT regimen.Te lephone visit in 4 weeks for medication refills [id number] Deion Valdovinos NP, [place] [facility] [address] 6 04/11/2024 15:29:09 04/11/2024 15:53:30 Hypogonadism 72253637 E29.1 Continue current HRT regimen.RT C for 90Day Aydin/Con sent [id number] Deion Valdovinos NP, S [facility] [address] [place] [address] 05/16/2024 15:23:36 05/17/2024 11:59:57 Hypogonadism 58306316 E29.1 90 Day Aydin/Con sentContin ue current HRT regimenLab work due after 06/28/2024 , order provided to have done4 week for telephone visit Screening for malignant neoplasm of prostate 100412672 Z12.5 [id number] Deion Valdovinos NP, S [facility] [address] [place] [address] 06/13/2024 15:19:39 06/13/2024 15:26:04 Hypogonadism 25411808 E29.1 Continue current HRT regimenLab work due after 06/28/2024 , order provided to have done4 week for telephone visit [id number] Deion Valdovinos NP, S [facility] 00 114[address] [facility] [address] [place] [address] 07/12/2024 13:42:09 07/12/2024 14:09:32 Hypogonadism 51679414 E29.1 Continue current HRT regimenLab work results reviewed. Creat andree, will fax to pts PCP. Has h/o HTNRTC for 90 day aydin and consent [id number] Deion Valdovinos NP, S [facility] [address] [place] [facility] 08/15/2024 14:48:19 08/15/2024 14:57:47 Hypogonadism 09194547 E29.1 Continue current HRT regimen4 week Telephone for Testostero ne Refills [id number] Deion Valdovinos NP, S [facility]1 00 [address] [facility] [address] [place] [address] 09/11/2024 08:40:34 09/11/2024 10:03:51 Hypogonadism 72094659 E29.1 Continue current HRT regimen4 week Telephone for Testostero ne Refills [id number] Deion Valdovinos NP, S [facility] [address] [place] [address] 10/10/2024 08:39:04 10/10/2024 08:43:52 Hypogonadism 54522132 E29.1 Continue current HRT regimenRTC for 90 day Yadin/Con sent [id number] Deion Valdovinos NP, [facility] [address] [place] [address] 11/07/2024 14:51:19 11/07/2024 15:06:01 Hypogonadism 43999332 E29.1 Continue current HRT regimen4 week telephone for Testostero ne RefillsLab work due in December 2024 [id number] Deion Valdovinos NP, S [facility] [address] [place] [address] 12/05/2024 14:29:13 12/05/2024 14:41:16 Hypogonadism 08018307 E29.1 Continue current HRT regimenLab work due in December 2024RTC for 90 day Aydin and Consent [id number] Deion Valdovinos NP, S [facility] [address] [place] [address] 01/09/2025 08:24:15 01/09/2025 08:36:19 Testosterone level below reference range 541655933 R79.89 90 day Aydin and Consent performedL abwork order provided for pt to have performedC ontinue current HRT regimen4 week Telephone for Testostero ne Refills Health Concerns Section Related Observation LastModified by Organization Detai ls LastModified Time None Recorded Concern Status LastModified by Organization Details LastModified Time None Recorded Advance Directives Directive None Recorded Payers Insurance Date Sequence Insurance Name Policy Number Policy Villasenor Covered Member ID Villasenor Member ID Guarantor Name 02/10/2025 1 [place] [id number] Deion Dorado Stacia [id number] Yasir Palomo 05/16/2024 2 MEDICAID-[facility] HEALTH CHOICES - FFS/TRADITIONA L Yasir Palomo [id number] Yasir Palomo 05/16/2024 2 [facility] (MEDICAID REPLACEMENT - HMO) [id number] Yasir Palomo [id number] Yasir Palomo Notes Date Note Type Note Provider Name and Address Organization Details Recorded Time 09/11/2024 text/html I have conducted a phone consultation with [...] was 1.0, and testosterone level was 459. Deion Valdovinos NP, S [address] , [place], [address], [facility] [place] & [place] 09/11/2024 09:42:42 10/10/2024 text/html 10/10/2024 I have conducted a phone consultation [...] Creat 1.77, Ast 22, Alt 50, Alp 9906/28/2023: hemoglobin 17.7, hematocrit 51.0, PSA was 1.0, and testosterone level was 459. Deion Valdovinos, KIKO, [address], [place], [address], [facility] [place] - [place] & [place] 10/10/2024 08:43:18 11/07/2024 text/html 11/07/2024 53 yowm RTC for 90 day [...] Creat 1.77, Ast 22, Alt 50, Alp 9906/28/2023: hemoglobin 17.7, hematocrit 51.0, PSA was 1.0, and testosterone level was 459. Deion Valdovinos, PARKING METER MECHANIC, [address], [place], [address], [facility] [place] - [place] & [place] 11/07/2024 15:07:07 12/05/2024 text/html 12/05/2024 I have conducted a phone consultation [...] Creat 1.77, Ast 22, Alt 50, Alp 9906/28/2023: hemoglobin 17.7, hematocrit 51.0, PSA was 1.0, and testosterone level was 459. Deion Valdovinos, KIOK, [address], [place], [address], [facility] [place] - [place] & [place] 12/05/2024 14:36:48 01/09/2025 text/html 01/09/2025 53 yowm RTC for [...] Creat 1.77, Ast 22, Alt 50, Alp 9906/28/2023: hemoglobin 17.7, hematocrit 51.0, PSA was 1.0, and testosterone level was 459. Deion Valdovinos, PARKING METER MECHANIC, [address], [place], [address], [facility] - [place] & [place] 01/09/2025 08:36:39
--- OUTSIDE RECORDS SUMMARY | 2025-02-12 07:09 | XMS_ITS | Encounter Summary ---
Author Organization [employer] [facility] [employer] Address [address] [place] [address] Care Team Providers Care House Steward/Stewardess Name Role Phone Leigh Rosenthal MD Primary Care Provider Encounter Details Date Type Department Care Team (Late st Contact Info) Description 07/03/2024 Outside Orders [facility] Admitting [address] [place] [address] Miriam Alonso, BUSINESS INSURANCE AGENT [address] [facility], [place] [address] [place] [address] Testicular hypofunction (Primary Dx); Special screening for malignant neoplasm of prostate Social History Tobacco Use Types Packs/Day Years [...] Date Ismael rded Speak language other than [place]ian at home Not on file 09/15/2023 Want [...] on file documented as of this encounter Results * PSA (07/03/2024 6:20 PM EST) Pathologist [facility] PSA diagnostic (ng/mL) 1.04 0.13 - 4 ng/mL 07/03/2024 7:33 PM EST [facility] Blood Venipuncture / Unknown 07/03/2024 6:20 PM EST 07/03/2024 6:20 PM EST Narrative [facility] - 07/03/2024 7:33 PM EST Patient results obtained by different methodologies or manufacturers may not be comparable. Miriam Alonso APRN LAB BLOOD ORDERABLES Final Result Performing Organization Address City/State/[facility] Co de Phone Number [facility] [address] [place] [address] * (ABNORMAL) Comprehensive metabolic panel (07/03/2024 6:20 PM EST) [facility] Sodium 138 136 - 145 meq/L 07/03/2024 7:01 PM EST [facility] Potassium 4.0 3.5 - 5.1 meq/L 07/03/2024 7:01 PM EST [facility] Chloride 103 98 - 107 meq/L 07/03/2024 7:01 PM EST [facility] CO2 29 21 - 32 meq/L 07/03/2024 7:01 PM EST [facility] Calcium 8.8 8.5 - 10.1 mg/dL 07/03/2024 7:01 PM [facility] Glucose 128(H) 70 - 99 mg/dL 07/03/2024 7:01 PM [facility] BUN 14 7 - 18 mg/dL 07/03/2024 7:01 PM [facility] Creatinine 1.77(H) 0.70 - 1.20 mg/dL 07/03/2024 7:01 PM [facility] BUN/Creatinine 8 07/03/2024 7:01 PM [facility] Albumin 4.0 3.4 - 5.0 g/dL 07/03/2024 7:01 PM [facility] Alkaline Phosphatase 99 46 - 116 U/L 07/03/2024 7:01 PM [facility] ALT 50 12 - 78 U/L 07/03/2024 7:01 PM [facility] AST 22 15 - 37 U/L 07/03/2024 7:01 PM [facility] Total Bilirubin 0.4 0.2 - 1.0 mg/dL 07/03/2024 7:01 PM [facility] Protein, Total 7.9 6.4 - 8.2 gm/dL 07/03/2024 7:01 PM [facility] Anion Gap 10(L) 11 - 07/03/2024 7:01 PM [facility] A/G Ratio 1.0 07/03/2024 7:01 PM [facility] Globulin 3.9 g/dL 07/03/2024 7:01 PM [facility] Osmolality Calc 277.8 7:01 PM [facility] eGFR (mL/min/1.73m2) 46(L) >=60 mL/min/1.7 3m2 07/03/2024 7:01 PM [facility] Comment:ESTIMATED GFR IS NOT ACCURATE CREATININE CLEARANCE IN PREDICTING GLOMERULAR FILTRATION RATE. ESTIMATED GFR IS NOT APPLICABLE FOR DIALYSIS PATIENTS. Blood Venipuncture / Unknown 07/03/2024 6:20 PM EST 07/03/2024 6:20 PM EST Miriam Alonso CED LAB BLOOD ORDERABLES Final Result [facility] [address] [id number] [phone] * (ABNORMAL) CBC with automated diff (07/03/2024 6:20 PM EST) WBC 7.3 4.8 - 10.8 K/ L 07/03/2024 6:42 PM [facility] RBC 5.48(H) 3.80 - 5.20 M/ L 07/03/2024 6:42 PM [facility] Hemoglobin 16.6 12.8 - 17.4 GM/DL 07/03/2024 6:42 PM [facility] Hematocrit 48.1 39.0 - 51.0 % 07/03/2024 6:42 PM [facility] MCV 88 81 - 101 fL 07/03/2024 6:42 PM [facility] MCH 30.3 27.0 - 34.0 pg 07/03/2024 6:42 PM [facility] MCHC 34.5 32.0 - 36.0 GM/DL 07/03/2024 6:42 PM [facility] RDW 12.2 11.5 - 14.5 % 07/03/2024 6:42 PM [facility] Platelets 283 150 - 400 K/CU MM 07/03/2024 6:42 PM [facility] MPV 10.4 9.4 - 12.4 fL 07/03/2024 6:42 PM [facility] Nucleated Red Blood Cell 0.0 0 - 0.2 % 07/03/2024 6:42 PM [facility] % Neutros 48 37 - 80 % 07/03/2024 6:42 PM [facility] % Lymphs 41 10 - 50 % 07/03/2024 6:42 PM [facility] % Monos 8 5 - 13 % 07/03/2024 6:42 PM EST [facility] % Eos 2 0 - 7 % 07/03/2024 6:42 PM EST [facility] % Baso 1 0 - 3 % 07/03/2024 6:42 PM EST [facility] NRBC Absolute <0.01 0 - 0.012 K/ul 07/03/2024 6:42 PM EST [facility] # Neutros 3.47 2.00 - 6.90 K/ L 07/03/2024 6:42 PM EST [facility] # Lymphs 2.97 0.60 - 3.40 K/ L 07/03/2024 6:42 PM EST [facility] # Monos 0.56 0.00 - 0.90 K/ L 07/03/2024 6:42 PM EST [facility] # Eos 0.16 0.00 - 0.70 K/ L 07/03/2024 6:42 PM EST [facility] # Baso 0.09 0.00 - 0.20 K/ L 07/03/2024 6:42 PM EST [facility] Immature Granulocytes-Re lative 0.10 % 07/03/2024 6:42 PM [facility] # IG 0.01(H) 0.00 - 0.00 K/uL 07/03/2024 6:42 PM [facility] Blood Venipuncture / Unknown 07/03/2024 6:20 PM EST 07/03/2024 6:20 PM EST Narrative [facility] - 07/03/2024 6:42 PM EST When CBC w/ Auto Diff is ordered the lab will add a Manual Differential as a quality check at no additional charge if: Lymphocytes greater than seventy five percent with normal or increased WBC Monocytes greater than Fifteen percent Basophil greater than four percent Bands >10% or several immature myeloids are seen on scan Blast? Flag noted Atypical Lymph flag noted Miriam Alonso APRN LAB BLOOD ORDERABLES Final Result [facility] [address] [place] [address], [facility] [phone] * Testosterone, Adult Male(SENDOUT) (07/03/2024 6:20 PM EST) Testosterone by Immunoassay 361 300 - 890 ng/dL 07/05/2024 10:12 PM EST [facility] Comment: INTERPRETIVE INFORMATION: Testosterone by Immunoassay Testosterone immunoassays are both imprecise and inaccurate at low testosterone concentrations, such as those found in children and cisgender females. For these individuals, testing by mass spectrometry is recommended; refer to Testosterone (Adult Females, Children, or Individuals on Testosterone-Suppressing Hormone Therapy) ([employer] test code [id number]). Free or bioavailable testosterone measurements may provide supportive information. For individuals on testosterone hormone therapy, refer to cisgender male reference intervals. No reference intervals have been established for males younger than 14 years or for cisgender females. For a complete set of all established reference intervals, refer to [employer].Sim[employer]/Tests/Pub/[id number]. Performed By: [facility] [address] [place] [address] Accounting Tutor: Leoncio Romero MD, PhD CLIA Number: [id number] Blood Venipuncture / Unknown 07/03/2024 6:20 PM EST 07/03/2024 6:20 PM EST Miriam Alonso APRN LAB BLOOD ORDERABLES Final Result [facility] [address] [phone] documented in this encounter Visit Diagnoses Diagnosis Testicular hypofunction- Primary Other testicular hypofunction Special screening for malignant neoplasm of prostate documented in this encounter Care Teams House Steward/Stewardess Relationship Specialty Start Date End Date Leigh Rosenthal MD [address] [facility] [address] [place] [address] PCP - General Pediatrics 07/03/24 documented as of this encounter
--- OUTSIDE RECORDS SUMMARY | 2025-02-12 07:09 | XMS_ITS | Referral Summary ---
Author Organization [facility] Address [address] [place] [address] Care Team Providers Care Business Intelligence Developer Name Role Phone Leigh Rosenthal MD Primary Care Provider [phone] Social History Tobacco Use Types Packs/Day Years [...] Date Ismael rded Speak language other than [place] Citizen at home Not on file 09/15/2023 Want [...] Orientation Not on file Plan of Treatment Not on file Insurance BLUE CROSS/BLUE SHIELD Care Teams Business Intelligence Developer Relationship Specialty Start Date End Date Leigh Rosenthal MD [address] [facility] [address] [place] [address] PCP - General Pediatrics 07/03/24
[2025-02-12 07:58] LABS: Basophils # 0.1 K/mm3 (0-0.2); Eosinophils # 0.2 Kmm3 (0.0-0.4); Eosinophils % 2.5 % (0.1-12.0); Hematocrit 49.9 % (42.0-52.0); Immature Granulocytes # 0.02 10^3uL; Immature Granulocytes % 0.3 %; Lymphocytes # 1.9 K/mm3 (0.7-4.5); Lymphocytes % 26.7 % (10-50); Mean Corpuscular HGB Conc 34.1 g/dL (31.8-35.4); Mean Corpuscular Hemoglobin 29.6 pg (27.0-31.2); Mean Corpuscular Volume 86.9 fl (80-94); Mean Platelet Volume 10.7 fl (7.4-10.4); Monocytes # 0.6 K/mm3 (0.1-1.0); Monocytes % 8.8 % (1.7-9.3); Neutrophils # 4.4 K/mm3 (1.8-7.8); Neutrophils % 60.7 % (37.0-80.0); Nucleated Red Blood Cells # 0 10^3/uL; Nucleated Red Blood Cells % 0 %; Platelet Count 263 K/mm3 (142-424); Red Blood Count 5.74 M/mm3 (4.60-6.20); Red Cell Distribution Width 12.5 % (11.5-17.5); Red Cell Distribution Width-SD 39.3 fL; White Blood Count 7.3 K/mm3 (4.8-10.8)
[2025-02-12 08:47] LABS: Albumin Level 4.5 g/dl (3.5-5.0); Chloride 105 mmol/L (98-107); Sodium 140 mmol/L (136-145)
[2025-02-12 08:48] LABS: Potassium 4.3 mmoL/L (3.5-5.1)
[2025-02-12 08:50] LABS: Alanine Aminotransferase 56 U/L (12-78); Albumin/Globulin Ratio 1.4 (1.1-1.8); Alkaline Phosphatase 78 U/L (38-126); Anion Gap 12.3 mEq/L (5-15); Aspartate Amino Transferase 36 U/L (17-59); Bilirubin,Total 0.6 mg/dl (0.2-1.3); Blood Urea Nitrogen 12 mg/dl (9-20); Carbon Dioxide 27 mmol/L (22.0-30.0); Cholesterol 208 mg/dl (140-200); Estimated Glomerular Filt Rate 63 ml/min (>60); GFR (African American) 77 ML/MIN (>60); Globulin 3.3 g/dL (1.3-3.2); Total Protein,Serum 7.8 g/dl (6.3-8.2); Triglycerides 224 mg/dl (30-150); VLDL Cholesterol 45 mg/dL (0-40)
[2025-02-12 08:51] LABS: Calcium 9.5 mg/dl (8.4-10.2); Chol/HDL Ratio 5.3 (1-3.5); Glucose 88 mg/dl (74-100); HDL Cholesterol 39 mg/dl (40-60)
[2025-02-12 09:02] LABS: Direct LDL Cholesterol 105.44 mg/dL (100-129)
[2025-02-13 12:14] LABS: Estradiol 34.7 pg/mL (7.6-42.6)
== END 2025-02-12 23:59 | disposition home or self-care (01) ==
PROVIDERS: Visit Provider Nurse Practitioner Family
DX: R79.89 Other specified abnormal findings of blood chemistry (principal)
CPT/HCPCS: 36415; 80053; 80061; 82670; 84403; 85025